=== PATIENT | male | born 1980 | race Caucasian/White ===

== ENCOUNTER 2021-04-17 12:42 | Day surgery (SDC) | payer BC, SELFPAY ==
[2021-04-16 17:23] LABS: Hematocrit 42.9 % (40-54); Hemoglobin 14.3 g/dL (13.0-16.5); Mean Corp Hgb Conc 33.3 g/dL (32-36); Mean Corpuscular Hgb 29.7 pg (27.0-32.0); Mean Platelet Vol. 12.1 fl (6.2-12.0); Platelet Count 237 K/mm3 (150-450); Red Blood Count 4.82 M/mm3 (4.6-6.2); White Blood Count 4.8 K/mm3 (4.4-11.0)
[2021-04-17 13:00] VITALS: BP 124/67; PULSE 50; RESP 16; TEMP 36.7; O2SAT 99; BMI 26.3
[2021-04-17] MEDS: Lactated Ringers 1,000 ML 100 ML IV ×2 (13:35→15:00)
--- NOTE | 2021-04-17 14:30 | CYST_PTH ---
PATIENT: GIOVANA JACOBS [place] [facility] [place][id number] AGE/SX: 40/M ROOM: RE04/17/[address]: Dr. Aki Veras DDS : 1980 BED: DIS: 04/17/2021 SPEC #: [id number] RECD: 04/17/21 15:34 STATUS: STU TYRELL #: [id number] POLO: 04/17/21 14:[address]: Aki Veras DEPT: SURGICAL PATHOLOGY RECD BY: Anel Nguyen ENTERED: 04/18/21 08:44 SP TYPE: Cyst OTHR DR: Dr. Andrea Micntosh MD Tissues: Mandible, NOS Procedures: Surgery Specimen Level IV HEADER OPERATION: Excision of benign tumor/cyst of mandible, removal of impact PRE-OP DIAGNOSIS: Odontogenic tumor/cyst right posterior mandible TISSUE SUBMITTED: Cyst of right posterior mandible MICROSCOPIC DIAGNOSIS Posterior mandible cyst, biopsy: Consistent with odontogenic cyst, inflamed and with associated reactive change. AM:juanito 04/22/2021 MICROSCOPIC DESCRIPTION Slides are reviewed. GROSS DESCRIPTION Received in fixative is one container labeled with the patient's name and designated cyst of right posterior mandible. The specimen consists of an irregular piece of duckworth-pink soft tissue consistent with portion of cyst measuring 1.5 x 1.5 x 0.5 cm. The cyst wall is thin without any papillation. The specimen is serially sectioned and submitted entirely in one cassette. / SJ:juanito 04/18/21 TC:5 CPT: 32045
[2021-04-17] MEDS: Bupivacaine Mpf 0.5% 30 ML VIAL (14:58)
[2021-04-17] MEDS: Lidocaine 2% /Epi 1:100 (50ml) 50 ML Vial (14:58)
[2021-04-17 15:43] VITALS: BP 124/67; BP 126/84; PULSE 62; RESP 16; TEMP 36.5; O2SAT 99
[2021-04-17 15:45] VITALS: BP 124/67; BP 127/86; PULSE 59; RESP 16; O2SAT 96
[2021-04-17 16:00] VITALS: BP 124/67; BP 129/95; PULSE 57; RESP 18; O2SAT 100
--- NOTE | 2021-04-17 16:06 | PCM.OPRPT ---
Problems Associated Problem List Diagnoses (1) Cyst of mandible: Report of Operation Date of Procedure: 04/17/21 Pre-Operative Diagnosis: Cyst right mandible Post-Operative Diagnosis: same Surgery/Procedure Performed:: Excision cyst of mandible and extraction tooth 32 Surgeon: Aki Veras Type of Anesthesia: General/Regional Anesthesiologist: Jayme Painting Special Medications: none Specimen's removed: cyst lining Drains: none Estimated Blood Loss (mL): minmal Fluids Replaced: 500 Description of Procedure: Patient taken to operating room and paced in supine position. Anesthesia monitors placed. IV general anesthesia and induced and patient intubated. Prepped in sterile fashion. Local anesthesia by right mandibular block. Full thickness incision right posterior mandible from the right ascending ramus carries anteriorly to the tooth bearing region of the mandible. Full flap elevated and using a high speed surgical handpiece bone was removed to enter the cystic region. The tooth was isolated and removed and the cystic lining was removed in total. The site was irrigated and sutured closed. Patient tolerated the anesthesia and procedure well. He was extubated and taken to recovery room in stable condition. Grafts/Implants Used: none Admit VTE Documentation VTE Pharm Prophylaxis ordered?: No
[2021-04-17 16:09] VITALS: BP 124/67; BP 130/94; PULSE 51; RESP 18; TEMP 36.1; O2SAT 100
--- NOTE | 2021-04-17 16:25 | PCM.DC ---
Discharge Instructions Diet Discharge Diet: Soft diet and - Activity Discharge Activity: May Not Drive, May Shower and May Take a Tub Bath Return to work on:: 04/22/21 Ice area for (Minutes): 20 Dressing / Incision Call your doctor if your incision/area has: Continuous Slow Oozing, Sudden Increased Bleeding, Increased Pain/ Swelling, Increased Redness and Foul Smelling Discharge Call your doctor if you observe: Fever of 101 or Higher Suture Line Care: Avoid Pulling/Pushing Follow Up Care Please Follow Up With: Dr. Veras When: 1 week. Please call for appointment Test Results: Test results from this visit will be discussed in further detail at your follow-up appointment, if applicable. Discharge Plan Admission Attending Provider: Aki Veras Primary Care Provider: Andrea Mcintosh Discharge Orders/Prescriptions Prescriptions: No Action vitamin B6-vitamin E-magnesium Tablet 1 tab PO DAILY RF: 0 Referrals / Follow Up: Andrea Mcintosh MD [Primary Care Provider] - Disposition Disposition (needs filled in before D/C Order can be placed): Home, self care
[2021-04-17 16:50] VITALS: BP 115/78; BP 124/67; PULSE 50; RESP 18; TEMP 36.2; O2SAT 100
== END 2021-04-17 17:05 | disposition home or self-care (01) ==
LOC: SDC 12:43 → AC 12:43
PROVIDERS: PCP Family Medicine; Referring Provider Dentist Oral and Maxillofacial Surgery; Visit Provider Dentist Oral and Maxillofacial Surgery
PROC: (CPT 41825; principal; 2021-04-17 14:20)
DX: K09.0 Developmental odontogenic cysts (principal); F17.290 Nicotine dependence, other tobacco product, uncomplicated; Z20.822 Contact with and (suspected) exposure to COVID-19
CPT/HCPCS: 41825; 41899; 36415; 85027; 87426; 88305; C9803; J7120; J2405

== ENCOUNTER → 2021-11-03 16:04 | Outpatient (CLI) | payer BC, SELFPAY ==
[2021-11-03 17:59] LABS: Absolute Lymphocyte Count 1.75 X10^3/uL (0.83-4.51); Absolute Neutrophil Count 2.7 X10^3/uL (2.0-7.7); Basophil# 0.05 X10^3/uL; Eosinophil# 0.15 X10^3/uL; Eosinophils% 2.9 % (0-5); Hematocrit 45.4 % (40-54); Hemoglobin 15.2 g/dL (13.0-16.5); Lymphocyte # 1.75 X10^3/ul (0.83-4.51); Lymphocyte % 33.7 % (19-41); Mean Corp Hgb Conc 33.5 g/dL (32-36); Mean Corpuscular Hgb 29.9 pg (27.0-32.0); Mean Corpuscular Volume 89.4 fL (80-94); Mean Platelet Vol. 12.2 fl (6.2-12.0); Monocyte# 0.54 X10^3/uL; Monocyte% 10.4 % (0-10); NRBC Flagged by Analyzer 0 % (0-5); Neutrophil # 2.69 X10^3/uL (2.7-7.7); Neutrophil % 51.6 % (47-70); Platelet Count 269 K/mm3 (150-450); RBC Distribution Width CV 11.9 % (11.6-14.6); RBC Distribution Width SD 39.1 fl (35.1-43.9); Red Blood Count 5.08 M/mm3 (4.6-6.2); White Blood Count 5.2 K/mm3 (4.4-11.0)
[2021-11-03 18:21] LABS: ALB/GLOB Ratio 1.5 RATIO (0.9-2.4); AST(SGOT) 18 U/L (15-37); Alanine Aminotransfer ALT/SGPT 33 U/L (16-61); Albumin, Serum 4.6 g/dL (3.2-5.0); Alkaline Phosphatase 71 U/L (45-117); Anion Gap 9 (5-15); BUN 8 mg/dL (7-18); BUN/Creat Ratio 8.2 RATIO (10-20); CPK Total, Creatine Kinase 122 U/L (39-308); CRP < 2.90 mg/L (0.0-3.0); Calcium,Total 9.1 mg/dL (8.5-10.1); Chloride 105 mmol/L (98-107); Creatinine, Serum 0.97 mg/dL (0.70-1.30); EST Glomerular Filtration Rate 91 mL/min (>60); Est Glom Filt Rate - Afr Amer 110 mL/min (>60); Globulin 3.1 g/dL (2.2-4.2); Glucose 84 mg/dL (74-106); Potassium 3.5 mmol/L (3.5-5.1); Protein, Total 7.7 g/dL (6.4-8.2); Rheumatoid Factor < 10.0 IU/mL (<15); Sodium Level 141 mmol/L (136-145); T4 Free Direct 1.09 ng/dL (0.76-1.46); Thyroid Stim Hormone (TSH) 1.75 uIU/mL (0.358-3.74)
[2021-11-03 18:23] LABS: Erythrocyte Sedimentation Rate 4 mm/hr (0-20)
[2021-11-06 07:27] LABS: CCP IgG Antibodies 5 units (0-19)
== END ==
PROVIDERS: PCP Family Medicine; Referring Provider Family Medicine; Visit Provider Family Medicine
DX: G72.9 Myopathy, unspecified (principal); M06.4 Inflammatory polyarthropathy; R53.83 Other fatigue
CPT/HCPCS: 36415; 80053; 82550; 84439; 84443; 85025; 85652; 86038; 86140; 86200; 86431

== ENCOUNTER → 2021-11-17 09:38 | Outpatient (CLI) | payer BC, SELFPAY ==
[2021-11-17 10:42] LABS: EXAGEN MAILED SPECIMEN
[2021-11-17 12:08] LABS: Absolute Lymphocyte Count 1.46 X10^3/uL (0.83-4.51); Absolute Neutrophil Count 2.9 X10^3/uL (2.0-7.7); Basophil# 0.05 X10^3/uL; Eosinophil# 0.18 X10^3/uL; Eosinophils% 3.6 % (0-5); Hematocrit 47.5 % (40-54); Hemoglobin 15.8 g/dL (13.0-16.5); Lymphocyte # 1.46 X10^3/ul (0.83-4.51); Lymphocyte % 29.1 % (19-41); Mean Corp Hgb Conc 33.3 g/dL (32-36); Mean Corpuscular Hgb 30.1 pg (27.0-32.0); Mean Corpuscular Volume 90.5 fL (80-94); Mean Platelet Vol. 11.6 fl (6.2-12.0); Monocyte# 0.41 X10^3/uL; Monocyte% 8.2 % (0-10); NRBC Flagged by Analyzer 0 % (0-5); Neutrophil # 2.91 X10^3/uL (2.7-7.7); Neutrophil % 57.9 % (47-70); Platelet Count 255 K/mm3 (150-450); RBC Distribution Width CV 12.2 % (11.6-14.6); Red Blood Count 5.25 M/mm3 (4.6-6.2)
[2021-11-17 12:15] LABS: Color, Urine Yellow (Yellow); Glucose, Dipstick Normal (Normal); Ketone-Dipstick Negative (Negative); Leukocyte Esterase-Dipstick Negative /ul (Negative); Nitrite-Dipstick Negative (Negative); Occult Blood-Urine Negative /ul (Negative); Protein-Dipstick Negative (Negative); Urine Bilirubin Dipstick Negative (Negative); Urine Clarity Clear (Clear); Urine Urobilinogen Normal (Normal)
[2021-11-17 12:26] LABS: Protein, Urine (Random) 11.7 mg/dL (<11.9); Protein:Creat Ratio 85 mg/g CRE (0-200)
[2021-11-17 12:37] LABS: ALB/GLOB Ratio 1.2 RATIO (0.9-2.4); AST(SGOT) 15 U/L (15-37); Alanine Aminotransfer ALT/SGPT 33 U/L (16-61); Albumin, Serum 4.2 g/dL (3.2-5.0); Alkaline Phosphatase 69 U/L (45-117); Anion Gap 7 (5-15); BUN 11 mg/dL (7-18); BUN/Creat Ratio 10.2 RATIO (10-20); Calcium,Total 9.2 mg/dL (8.5-10.1); Chloride 109 mmol/L (98-107); Creatinine, Serum 1.08 mg/dL (0.70-1.30); EST Glomerular Filtration Rate 81 mL/min (>60); Est Glom Filt Rate - Afr Amer 98 mL/min (>60); Globulin 3.5 g/dL (2.2-4.2); Glucose 90 mg/dL (74-106); Potassium 4.1 mmol/L (3.5-5.1); Protein, Total 7.7 g/dL (6.4-8.2); Sodium Level 141 mmol/L (136-145)
[2021-11-17 13:05] LABS: Hepatitis B Surface Antibody Non-Reactive; Hepatitis B Surface Antigen Non-Reactive (Nonreactive); Hepatitis C Antibody Non-Reactive (Nonreactive)
[2021-11-19 05:07] LABS: Dilute Prothrombin Time (dPT) 37.8 sec (0.0-47.6); Dilute Russell Viper Venom 33.3 sec (0.0-47.0); PTT-LA 31.3 sec (0.0-51.9); Thrombin Time 19.5 sec (0.0-23.0); dPT Confirm Ratio 1.07 Ratio (0.00-1.34)
[2021-11-19 08:52] LABS: Interpretation Comment: (.)
== END ==
PROVIDERS: PCP Family Medicine; Referring Provider Internal Medicine Rheumatology; Visit Provider Internal Medicine Rheumatology
DX: M06.4 Inflammatory polyarthropathy (principal); R76.8 Other specified abnormal immunological findings in serum
CPT/HCPCS: 36415; 80053; 81002; 82570; 84156; 85025; 86706; 86803; 87340

== ENCOUNTER 2022-01-28 15:21 | Outpatient (CLI) | payer BC, SELFPAY ==
[2022-01-28 17:47] LABS: Absolute Lymphocyte Count 1.74 X10^3/uL (0.83-4.51); Absolute Neutrophil Count 2.7 X10^3/uL (2.0-7.7); Basophil# 0.05 X10^3/uL; Hematocrit 43.1 % (40-54); Hemoglobin 14.9 g/dL (13.0-16.5); Lymphocyte # 1.74 X10^3/ul (0.83-4.51); Lymphocyte % 34.1 % (19-41); Mean Corp Hgb Conc 34.6 g/dL (32-36); Mean Corpuscular Hgb 30.9 pg (27.0-32.0); Mean Corpuscular Volume 89.4 fL (80-94); Mean Platelet Vol. 11.7 fl (6.2-12.0); Monocyte% 9.8 % (0-10); NRBC Flagged by Analyzer 0 % (0-5); Neutrophil # 2.71 X10^3/uL (2.7-7.7); Neutrophil % 52.9 % (47-70); Platelet Count 259 K/mm3 (150-450); RBC Distribution Width CV 12.1 % (11.6-14.6); RBC Distribution Width SD 39.6 fl (35.1-43.9); Red Blood Count 4.82 M/mm3 (4.6-6.2); White Blood Count 5.1 K/mm3 (4.4-11.0)
[2022-01-28 18:12] LABS: ALB/GLOB Ratio 1.4 RATIO (0.9-2.4); AST(SGOT) 13 U/L (15-37); Alanine Aminotransfer ALT/SGPT 27 U/L (16-61); Albumin, Serum 4.4 g/dL (3.2-5.0); Alkaline Phosphatase 62 U/L (45-117); Anion Gap 8 (5-15); BUN 14 mg/dL (7-18); BUN/Creat Ratio 15.2 RATIO (10-20); Chloride 103 mmol/L (98-107); Creatinine, Serum 0.92 mg/dL (0.70-1.30); EST Glomerular Filtration Rate 97 mL/min (>60); Est Glom Filt Rate - Afr Amer 117 mL/min (>60); Globulin 3.2 g/dL (2.2-4.2); Glucose 84 mg/dL (74-106); Potassium 3.6 mmol/L (3.5-5.1); Protein, Total 7.6 g/dL (6.4-8.2); Sodium Level 138 mmol/L (136-145)
== END 2022-01-28 23:59 | disposition home or self-care (01) ==
PROVIDERS: PCP Family Medicine; Referring Provider Internal Medicine Rheumatology; Visit Provider Internal Medicine Rheumatology
DX: M06.4 Inflammatory polyarthropathy (principal); R76.8 Other specified abnormal immunological findings in serum; Z79.899 Other long term (current) drug therapy
CPT/HCPCS: 36415; 80053; 85025

== ENCOUNTER → 2024-05-19 | Outpatient (CLI) | payer BC, SELFPAY ==
[2024-05-19 15:16] LABS: Absolute Lymphocyte Count 1.37 X10^3/uL (0.83-4.51); Absolute Neutrophil Count 2.5 X10^3/uL (2.0-7.7); Basophil# 0.06 X10^3/uL; Basophil% 1.3 % (0-1); Eosinophil# 0.11 X10^3/uL; Eosinophils% 2.4 % (0-5); Hematocrit 46.3 % (40-54); Hemoglobin 15.4 g/dL (13.0-16.5); Lymphocyte # 1.37 X10^3/ul (0.83-4.51); Lymphocyte % 30.4 % (19-41); Mean Corp Hgb Conc 33.3 g/dL (32-36); Mean Corpuscular Hgb 30.3 pg (27.0-32.0); Mean Platelet Vol. 12.1 fl (6.2-12.0); Monocyte# 0.47 X10^3/uL; Monocyte% 10.4 % (0-10); NRBC Flagged by Analyzer 0 % (0-5); Neutrophil # 2.48 X10^3/uL (2.7-7.7); Neutrophil % 55.3 % (47-70); Platelet Count 222 K/mm3 (150-450); RBC Distribution Width CV 11.9 % (11.6-14.6); RBC Distribution Width SD 39.9 fl (35.1-43.9); Red Blood Count 5.09 M/mm3 (4.6-6.2); White Blood Count 4.5 K/mm3 (4.4-11.0)
[2024-05-19 15:39] LABS: Erythrocyte Sedimentation Rate 1 mm/hr (0-20)
[2024-05-19 15:48] LABS: ALB/GLOB Ratio 1.2 RATIO (0.9-2.4); AST(SGOT) 15 U/L (15-37); Alanine Aminotransfer ALT/SGPT 36 U/L (16-61); Albumin, Serum 4.1 g/dL (3.2-5.0); Alkaline Phosphatase 76 U/L (45-117); Anion Gap 6 (5-15); BUN 11 mg/dL (7-18); BUN/Creat Ratio 10.8 RATIO (10-20); CRP < 2.90 mg/L (0.0-3.0); Calcium,Total 8.9 mg/dL (8.5-10.1); Chloride 107 mmol/L (98-107); Cholesterol 200 mg/dL (200); Creatinine, Serum 1.02 mg/dL (0.70-1.30); EST Glomerular Filtration Rate 85 mL/min (>60); Est Glom Filt Rate - Afr Amer 103 mL/min (>60); Globulin 3.4 g/dL (2.2-4.2); Glucose 89 mg/dL (74-106); High Density Lipoprotein 86 mg/dL; Potassium 4.1 mmol/L (3.5-5.1); Protein, Total 7.5 g/dL (6.4-8.2); Sodium Level 139 mmol/L (136-145); Triglycerides 64 mg/dL; Very Low Density Lipoprotein 13 mg/dL (5-40)
[2024-05-22 13:07] LABS: ANTINUCLEAR ANTIBODIES DIRECT Negative (Negative)
== END | disposition home or self-care (01) ==
LOC: BFHLAB 10:50
PROVIDERS: PCP Nurse Practitioner Family; Referring Provider Nurse Practitioner Family; Visit Provider Nurse Practitioner Family
DX: Z00.01 Encounter for general adult medical examination with abnormal findings (principal); Z12.5 Encounter for screening for malignant neoplasm of prostate; R76.8 Other specified abnormal immunological findings in serum; R79.89 Other specified abnormal findings of blood chemistry; M25.50 Pain in unspecified joint
CPT/HCPCS: 36415; 80053; 80061; 84153; 84403; 85025; 85652; 86038; 86140; G0103

== ENCOUNTER 2024-07-05 07:38 | Day surgery (SDC) | payer BC, SELFPAY ==
[2024-07-05] VITALS (7 sets, daily range): BP systolic 86–125; BP diastolic 55–75; PULSE 47–66; RESP 16; TEMP 36.1–36.6; O2SAT 97–100; BMI 27.1
[2024-07-05] MEDS: Lactated Ringers 1,000 ML 15 ML IV (08:03)
--- NOTE | 2024-07-05 08:07 | HP.PCM_ITS ---
HPI - General General Date of Service: 07/05/24 [facility] Narrative GIOVANA JACOBS, is a 43 M who presents for an EGD and colonoscopy due to epigastric pain and bloating and bright red blood per rectum. Patient denies any further bleeding since office visit. Patient did have a prescription called in for omeprazole however patient never picked it up. Still complains of abdominal bloating states the pain is not that bad. office visit 06/01/24 [facility] HPI: 43-year-old male presents for EGD and colonoscopy due to epigastric discomfort and bright red blood per rectum. Patient states he has had occasional bleeding per rectum for last few years states maybe once every 2 to 3 months. But patient states about a month and a half ago he had 3 days of straight bright red blood patient denies any issues with hemorrhoids at that time. Patient denies any further bleeding since the 3-day episode. Patient has bowel movements daily. Patient denies any family history of colon cancer. Patient does state that he does get epigastric pain after eating that happens almost immediately after he finished eating can last for couple of hours. Patient states this has been ongoing for about the last 8 months. Patient denies any nausea or vomiting. The patient does not really feel like eating and can go 24 hours without him feeling hungry. Patient denies trying any antiacid's or other medications for this. [facility] Medical History Wears contact lenses Wears glasses Alcohol use Smoker Allergy/AdvReac Type Severity Reaction Status Date / Time No Known Allergies Allergy Verified 07/05/24 07:55 Surgical History (Updated 07/03/24 @ 09:54 by Elke Combs) History of wisdom tooth extraction Social History (Updated 06/01/24 @ 13:19 by Patti Francisco) Smoking Status: Current every day smoker tobacco type: e-cigarettes alcohol intake: current substance use type: does not use Past Medical/Surgical History Planned Operation Planned Operative Procedure(s): EGD, COLONOSCOPY Previous Hospitalizations/Surgeries HX Hospitalizations: No Any Problems With Anesthesia: No You/Your Family Experience Fever (Hyperthermia) With Anes: No Cholinesterase deficiency: No Cardiovascular Hx Hypertension: No Respiratory Hx Asthma: No Hx Emphysema: No Hx Sleep Apnea: No Hx Respiratory Tract Infection/Cold (presently): No Do You Snore Loudly (louder than talking or can be heard): No Do You Often Feel Tired/ Fatigued/ Sleepy Dring Daytime?: No Has Anyone Observed You Stop Breathing During Sleep?: No Result (for STOP score): Negative Smoking Status: Current every day smoker Neurological Hx Seizures: No Does patient have nerve stimulator: No Reproduction : No Miscellaneous Recent Exposure to Contagious Disease: No Allergies No Known Allergies Allergy (Verified 07/05/24 07:55) Discharge Is Pt Admitted From a Penitentiary, or a Nursing Home: No Who Could Help: After D/C, Where Do you Plan to Go: Return Home Vital Signs Vital Signs Vital Signs: 07/05/24 08:00 07/05/24 08:00 Temperature 97.8 F Temperature Source Temporal Pulse Rate 63 Respiratory Rate 16 Respiratory Pattern Normal Blood Pressure 125/71 H Blood Pressure Mean 89 Blood Pressure Source Monitor Blood Pressure Position Sitting Blood Pressure Location Right Arm Pulse Ox 99 Oxygen Delivery Method Room Air Weight Weight: 211 lb 10.3 oz Body Mass Index (BMI) 27.1 Physical Exam Const alert, oriented x3 and no apparent distress HEENT normocephalic and head/scalp atraumatic Resp normal respiratory effort Cardio regular rate GI soft to palpation and non-tender; Negative for non-distended Palpation: Negative for guarding Extremity no clubbing, cyanosis or edema Skin no rashes or lesions noted Neuro CN's II-XII intact bilaterally Psych mental status grossly normal Assessment & Plan Assessment/Plan (1) Epigastric abdominal pain: (2) Blood in stool: Surgery Risks - Colonoscopy I discussed with the patient the risks of the procedure: Yes Risks Include but are not Limited To: Plan for EGD and colonoscopy risks include but are not limited to: Bleeding, perforation requiring further surgery, inability to complete colonoscopy requiring barium enema.
--- NOTE | 2024-07-05 08:21 | PRE.ANES_ITS ---
ASA Classification* ASA Classification ASA Classification: 2 Assessment & Plan Anesthesia* Anesthesia Assessment Anesthesia Assessment: Discussed sedation and/or anesthesia options, risks, benefits, and alternatives with patient/parents/legal guardian/POA. Questions invited. The patient/parents/legal guardian/POA seems to understand and agrees to proceed with anesthesia plan. Reviewed the physical assessment, medical history, allergy history and patient home medications list prior to surgery/procedure/anesthetic and documented any changes. Performed airway and anesthesia risk assessments. Anesthesia Type Anesthesia Type: MAC Anesthesia Focused Assessment* Temperature: 97.8 F Pulse Rate: 63 Blood Pressure: 125/71 Respiratory Rate: 16 Pulse Ox: 99 Airway Assessment Mouth opens: >3 cm Mallampati Score: II Focused Labs Anesthesia Preop lab: CBC WBC 4.5 K/mm3 (4.4-11.0) 05/19/24 10:50 RBC 5.09 M/mm3 (4.6-6.2) 05/19/24 10:50 Hgb 15.4 g/dL (13.0-16.5) 05/19/24 10:50 Hct 46.3 % (40-54) 05/19/24 10:50 Plt Count 222 K/mm3 (150-450) 05/19/24 10:50 CHEMISTRY Potassium 4.1 mmol/L (3.5-5.1) 05/19/24 10:50 Sodium 139 mmol/L (136-145) 05/19/24 10:50 BUN 11 mg/dL (7-18) 05/19/24 10:50 Creatinine 1.02 mg/dL (0.70-1.30) 05/19/24 10:50 Glucose 89 mg/dL (74-106) 05/19/24 10:50 TSH 1.75 uIU/mL (0.358-3.74) 11/03/21 16:15 COAG Pre-Assessment Diagnosis/Proposed Procedure Planned Operative Procedure(s): EGD, COLONOSCOPY Anesthesia History Anesthesia History - fitness assistant: Anesthesia History - fitness assistant Hx Hospitalization No 07/05/24 08:09 Any Problems With Anesthesia No 07/05/24 08:09 Cholinesterase deficiency No 07/05/24 08:09 You/Your Family Experience No 07/05/24 08:09 fever (hyperthermia) with Relationship Recent Exposure to Contagious No 07/05/24 08:09 Disease Does patient have nerve No 07/05/24 08:09 stimulator Patient instructed to have device shut off --Does patient have Pacemaker No 07/05/24 08:00 or ICD? When Was Last Pacemaker Check QUESTION #4 FULL TEXT: You/Your Family Experience fever (hyperthermia) with Anesthesia Last Oral Intake Last Oral intake: Last Oral Intake NPO since 19:30 07/05/24 08:00 Meds taken in AM with sips of No 07/05/24 08:00 water? Meds patient instructed to take am of surgery PONV PONV - fitness assistant: PONV - fitness assistant Female No 07/03/24 09:54 HX of Motion Sickness No 07/03/24 09:54 HX of N/V After Surgery No 07/03/24 09:54 Non-Smoker No 07/03/24 09:54 Duration of Surgery greater No 07/03/24 09:54 than 60 minutes Number of Risk Factors PONV Score Height & Weight Height & Weight: Anesthesia: Height & Weight Height 6 ft 2 in 07/05/24 08:00 Weight: 96 kg 07/05/24 08:00 Body Mass Index (BMI) 27.1 07/05/24 08:00 Respiratory Assessment Respiratory Assessment - fitness assistant: Respiratory Tract Infection Hx - fitness assistant Hx Respiratory Tract Infection No 07/05/24 08:09 STOP Sleep Apnea STOP Sleep Apnea - fitness assistant: STOP Sleep Apnea - fitness assistant Hx Hypertension No 07/05/24 08:09 Hx Sleep Apnea No 07/05/24 08:09 CPAP BIPAP Do you snore loudly (louder No 07/05/24 08:09 than talking or can be heard Do you often feel tired/ No 07/05/24 08:09 fatigued/ sleepy during daytime? Has anyone observed you stop No 07/05/24 08:09 breathing during sleep? STOP Results Negative 07/05/24 08:16 QUESTION #5 FULL TEXT : Do you snore loudly (louder than talking or can be heard through closed doors)? Tobacco Use History Tobacco Use History - fitness assistant: Tobacco Use History - fitness assistant Tobacco Use Cigarettes,Vapor 04/10/21 10:56 Smoking Status Current every day smoker 07/05/24 08:09 Hx Tobacco Use Yes 07/03/24 09:54 Years Smoking Packs Smoked per Day Smoking Cessation Date was within the last 15 years Hx Smoking Cessation Date Hx Smoking Cessation Counseling Hematologic Medial History Hematologic Hx - fitness assistant: Hematologic Medical Hx - piece maker Hx of Blood Transfusion No 07/03/24 09:54 Hx of Transfusion in last 3 No 07/03/24 09:54 Months Date of Last Transfusion (if within last 3 months) Ever experience any problems No 07/03/24 09:54 with transfusion(s)? Specify any problems Hx of Preganancy in last 3 N/A 07/03/24 09:54 Months Nurse Filling Out Transfusion VLEHMAN 07/03/24 09:54 & Questions: Date: 07/03/24 07/03/24 09:54 Time: 10:01 07/03/24 09:54 Patient unable to answer at this time (ie. confused, unrespo /Reproduction History /Reproductive History - fitness assistant: /Reproductive Hx- fitness assistant Hx Now No 07/05/24 08:09 Gestational Age (in weeks): EDC: Hx Hx Para Hx Section SAB Active Medications Active Medications: Current Medications Generic Name Dose Route Start Last Admin Trade Name Freq PRN Reason Stop Dose Admin Lactated Ringer's 1,000 mls @ 15 mls/hr 07/05/24 08:00 07/05/24 08:03 IV 15 mls/hr .Q48H AMY Administration PFSH Medical History Wears contact lenses Wears glasses Alcohol use Smoker Allergy/AdvReac Type Severity Reaction Status Date / Time No Known Allergies Allergy Verified 07/05/24 07:55 Surgical History History of wisdom tooth extraction Social History Smoking Status: Current every day smoker tobacco type: e-cigarettes alcohol intake: current substance use type: does not use Review of Systems (Anesthesia) ROS Narrative System reviewed and no additional complaints, except as documented.
--- NOTE | 2024-07-05 09:00 | EGD_PTH ---
PATIENT: GIOVANA JACOBS LOC: [place] U#:[id number] AGE/SX: 43/M ROOM: RE07/05/[address]: Dr. Yuli Mtoley MD : 1980 BED: DIS: 07/05/2024 SPEC #: [id number] RECD: 07/05/24 13:18 STATUS: STU TYRELL #: [id number] POLO: 07/05/24 09:[address]: Yuli Motley DEPT: SURGICAL PATHOLOGY RECD BY: Berenice Vela ENTERED: 07/06/24 09:07 SP TYPE: EGD BIOPSY OT DR: Aby Lopez, HOISTING ENGINEER-C Tissues: A - Gastric mucous membrane B - Esophagus, NOS C - Ascending colon D - Transverse colon E - Descending colon F - Descending colon G - Rectum, NOS Procedures: Surgery Specimen Level IV HEADER OPERATION: Colonoscopy, EGD, biopsy, polypectomy PRE-OP DIAGNOSIS: Epigastric abdominal pain, blood in stool TISSUE SUBMITTED: A- Antrum biopsy, B- Gastroesophageal junction biopsy, C- Ascending colon polyp, D- Transverse colon polyp, E- Descending colon polyp mid and base, F- Descending colon distal polyp, G- Rectal polyp MICROSCOPIC DIAGNOSIS A. Gastric antrum , biopsy: Chronic gastritis. See comment. B. Gastroesophageal junction, biopsy: Mild chronic inflammation. Focal changes of reflux. No evidence of goblet cell metaplasia. See comment. C. Ascending colon polyp, biopsy: Fragments of tubular adenoma. D. Transverse colon polyp, biopsy: Fragments of tubular adenoma. E. Descending colon polyp, biopsy: Fragments of tubulovillous adenoma. F. Descending colon distal polyp, biopsy: Fragments of tubulovillous adenoma. G. Rectal polyp, biopsy: Fragments of tubulovillous adenoma. AM/ 07/07/2024 COMMENT A. The results of immunohistochemistry for Helicobacter pylori will be reported separately ([id number]). B. Alcian blue/PAS stain with matched control is used in the evaluation of the specimen. MICROSCOPIC DESCRIPTION Slides are reviewed. GROSS DESCRIPTION A. Received in fixative is one container labeled with the patient's name and designated Antrum biopsy. The specimen consists of one irregular fragment of light duckworth soft tissue that measures 0.3 x 0.3 x 0.1 cm. The specimen is totally submitted in one cassette. B. Received in fixative is one container labeled with the patient's name and designated GE junction biopsy. The specimen consists of two irregular fragments of light duckworth soft tissue that measures 0.4 x 0.2 x 0.1 cm. The specimen is totally submitted in one cassette. C. Received in fixative is one container labeled with the patient's name and designated Ascending colon polyp. The specimen consists of multiple irregular fragments of light duckworth soft tissue that in aggregate measure 1.0 x 0.5 x 0.1 cm. The specimen is totally submitted in one cassette. D. Received in fixative is one container labeled with the patient's name and designated Transverse colon polyp. The specimen consists of multiple irregular fragments of light duckworth soft tissue that in aggregate measure 0.6 x 0.3 x 0.1 cm. The specimen is totally submitted in one cassette. E. Received in fixative is one container labeled with the patient's name and designated Descending colon polyp- mid and base. The specimen consists of multiple irregular fragments of light duckworth soft tissue that in aggregate measure 2.5 x 1.5 x 0.2 cm. The specimen is totally submitted in one cassette. F. Received in fixative is one container labeled with the patient's name and designated Descending colon - distal polyp. The specimen consists of two fragments each measuring 1.5 x 1.5 x 1.2cm and 2.5 x 1.5 x 1.2cm. The presumed base is inked. Both polyps are serially sectioned . The entire specimen is submitted in four cassettes as follows: 1-3- larger polyp, 4- smaller polyp. G. Received in fixative is one container labeled with the patient's name and designated Rectal polyp. The specimen consists of a duckworth-pink polyp measuring 1.0 x 1.0 x 0.6 cm. Also present in the container are multiple fragments of duckworth-pink soft tissue measuring in aggregate 2.0 x 0.5 x 0.1cm. The presumed base is inked. The polyp is serially sectioned and submitted entirely in one cassette. ARANZA/ 07/06/2024 TC:1 CPT:42072g9,93993 ADDENDUM ADDENDUM ADDENDUM 07/10/2024 16:24 ADDENDUM 07/10/2024 16:24 ADDENDUM 07/10/2024 16:24 ADDENDUM 07/10/2024 16:24 ADDENDUM 07/10/2024 16:24 B. Eosinophils number greater than 15% per high power field. Clinical correlation is necessary.
--- NOTE | 2024-07-05 09:00 | IMM_PTH ---
PATIENT: GIOVANA JACOBS LOC: [place] U#:[id number] AGE/SX: 43/M ROOM: RE07/05/[address]: Dr. Yuli Motley MD : 1980 BED: DIS: 07/05/2024 SPEC #: [id number] RECD: 07/06/24 08:10 STATUS: STU REMarie #: [id number] POLO: 07/05/24 09:[address]: Yuli Motley DEPT: IMMUNOHISTOCHEMISTRY RECD BY: Seamus Boston ENTERED: 07/06/24 08:12 SP TYPE: IMMUNO OTHR DR: Aby Lopez, SLEEVE WHEEL MAKER-Iram Tissues: A - Gastric mucous membrane Procedures: H Pylori (initial) PHYSICIAN & INSTITUTION [place] [id number] SPECIMEN INFORMATION: Tissue Source: A- Antrum Clinical Info: Epigastric abdominal pain, blood in stool Specimen Number: [id number] CPT code: 05680 METHODOLOGY: Deparaffinized sections of prefer/formalin-fixed tissue or PAP/DQ stained slides are incubated with monoclonal/polyclonal antibodies/oligonucleotide probes. Localization is made via biotin free immunoperoxidase method. Appropriate controls are performed and reacted as expected. Results on target cell population are indicated in the following table: RESULTS: ANTIBODY / CLONE RESULT Block A H Pylori (polyclonal) negative These tests were developed and their performance characteristics determined by [facility]. They may not have been cleared or approved by the U.S. Food and Drug Administration. The FDA has determined that such clearance or approval is not necessary. The above immunohistochemical/dualISH markers are ordered and reviewed by the Pathologist. INTERPRETATION: A. Gastric antrum, biopsy: Negative for Helicobacter pylori organisms. DELPHINE/ 07/07/2024
--- NOTE | 2024-07-05 10:14 | OP.EGD_ITS ---
Patient Name: Narciso Mendosa Procedure Date: 07/05/2024 9:24 AM Date of : 1980 Age: 43 Procedure: Upper GI endoscopy Indications: Epigastric abdominal pain, Heartburn Providers: Yuli Motley MD Medicines: Monitored Anesthesia Care Patient Profile: This is a 43 year old male. Complications: No immediate complications. Procedure: Pre-Anesthesia Assessment: - Prior to the procedure, a History and Physical was performed, and patient medications and allergies were reviewed. The patient's tolerance of previous anesthesia was also reviewed. The risks and benefits of the procedure and the sedation options and risks were discussed with the patient. All questions were answered, and informed consent was obtained. Prior Anticoagulants: The patient has taken no anticoagulant or antiplatelet agents. ASA Grade Assessment: Per anesthesia. After reviewing the risks and benefits, the patient was deemed in satisfactory condition to undergo the procedure. After obtaining informed consent, the endoscope was passed under direct vision. Throughout the procedure, the patient's blood pressure, pulse, and oxygen saturations were monitored continuously. The Colonoscope was introduced through the mouth, and advanced to the second part of duodenum. The upper GI endoscopy was accomplished without difficulty. The patient tolerated the procedure well. Scope In: 9:32:09 AM Scope Out: 9:35:37 AM Total Procedure Duration Time 0 hours 3 minutes 28 seconds Findings: The Z-line was irregular and was found 40 cm from the incisors. Biopsies were taken with a cold forceps for histology. Striped moderately erythematous mucosa without bleeding was found in the gastric antrum. Biopsies were taken with a cold forceps for histology. Biopsies were taken with a cold forceps for Helicobacter pylori cultures. The examined duodenum was normal. The cardia and gastric fundus were normal on retroflexion. Impression: - Z-line irregular, 40 cm from the incisors. Biopsied. - Erythematous mucosa in the antrum. Biopsied. - Normal examined duodenum. Recommendation: - Await pathology results. - Discharge patient to home. - Resume previous diet. - Use Prilosec (omeprazole) 40 mg PO daily. - Continue present medications. Procedure Code(s): --- Professional --- 59243, Esophagogastroduodenoscopy, flexible, transoral; with biopsy, single or multiple Diagnosis Code(s): --- Professional --- K22.89, Other specified disease of esophagus K31.89, Other diseases of stomach and duodenum R10.13, Epigastric pain R12, Heartburn CPT copyright 2021 [employer] [place] [employer]. All rights reserved. The codes documented in this report are preliminary and upon sheet sorter review may be revised to meet current compliance requirements. MD Yuli Valdivia MD 07/05/2024 10:14:31 AM This report has been signed electronically. Number of Addenda: 0 Note Initiated On: 07/05/2024 9:24 AM
--- NOTE | 2024-07-05 10:15 | OP.CCLET_ITS ---
07/05/2024 Jeet Freire Re : Upper GI endoscopy procedure for Narciso Balderasr John This procedure was performed on Friday, July 05, 2024. My impressions and recommendations are as follows: Impressions : - Z-line irregular, 40 cm from the incisors. Biopsied. - Erythematous mucosa in the antrum. Biopsied. - Normal examined duodenum. Recommendations : - Await pathology results. - Discharge patient to home. - Resume previous diet. - Use Prilosec (omeprazole) 40 mg PO daily. - Continue present medications. My findings are described in the full procedure note, which is enclosed. If I can be of further assistance, please feel free to contact me at Doctor phone number(s): , Work: . Sincerely, MD Yuli Valdivia MD 07/05/2024 10:14:31 AM This report has been signed electronically.
--- NOTE | 2024-07-05 10:19 | PCM.POST.ANE ---
Anesthesia: Postop Eval I Current Vital Signs Temperature: 97 F Pulse Rate: 64 Blood Pressure: 86/55 Respiratory Rate: 16 Pulse Ox: 97 Oxygen Delivery Method: Room Air Assessment Airway patent: Yes Spontaneous unlabored respirations: Yes Mental status: Awake and Calm nausea: No Vomiting: No Anesthesia Complication: No Fluid Hydration Crystalloid volume administer (ml): 900 Total IV fluid infused: 900 Progress Note Anesthesia document: Postop Eval 1 completed: Yes
--- NOTE | 2024-07-05 10:22 | OP.COLON_ITS ---
Patient Name: Narciso Mendosa Procedure Date: 07/05/2024 9:35 AM Date of : 1980 Age: 43 Procedure: Colonoscopy Indications: Rectal bleeding Providers: Yuli Motley MD Medicines: Monitored Anesthesia Care Patient Profile: This is a 43 year old male. Last Colonoscopy: none. The patient's first colonoscopy is today. Complications: No immediate complications. Procedure: Pre-Anesthesia Assessment: - Prior to the procedure, a History and Physical was performed, and patient medications and allergies were reviewed. The patient's tolerance of previous anesthesia was also reviewed. The risks and benefits of the procedure and the sedation options and risks were discussed with the patient. All questions were answered, and informed consent was obtained. Prior Anticoagulants: The patient has taken no anticoagulant or antiplatelet agents. ASA Grade Assessment: Per anesthesia. After reviewing the risks and benefits, the patient was deemed in satisfactory condition to undergo the procedure. After I obtained informed consent, the scope was passed under direct vision. Throughout the procedure, the patient's blood pressure, pulse, and oxygen saturations were monitored continuously. The Colonoscope was introduced through the anus and advanced to the cecum, identified by appendiceal orifice and ileocecal valve. The colonoscopy was performed without difficulty. The patient tolerated the procedure well. The quality of the bowel preparation was good. Scope In: 9:36:36 AM Scope Withdrawal Time 0 hours 26 minutes 49 seconds Scope Out: 10:08:35 AM Total Procedure Duration Time 0 hours 31 minutes 59 seconds Findings: The perianal and digital rectal examinations were normal. A 37 mm polyp was found in the descending colon at 80 cm. The polyp was pedunculated. The polyp was removed with a piecemeal technique using a hot snare. Resection and retrieval were complete. Area was successfully injected with [Volume] Kathy ink for tattooing. A 10 mm polyp was found in the rectum. The polyp was pedunculated. The polyp was removed with a hot snare. Resection and retrieval were complete. A less than 5 mm polyp was found in the ascending colon. The polyp was semi-pedunculated. The polyp was removed with a hot snare. Resection and retrieval were complete. Impression: - One 36 mm polyp in the descending colon, removed piecemeal using a hot snare. Resected and retrieved. Injected. - One 10 mm polyp in the rectum, removed with a hot snare. Resected and retrieved. - One less than 5 mm polyp in the ascending colon, removed with a hot snare. Resected and retrieved. Recommendation: - Await pathology results. - Repeat colonoscopy 6 month- 1 year for surveillance based on pathology results. - Continue present medications. Procedure Code(s): --- Professional --- 58332, Colonoscopy, flexible; with removal of tumor(s), polyp(s), or other lesion(s) by snare technique 76304, Colonoscopy, flexible; with directed submucosal injection(s), any substance Diagnosis Code(s): --- Professional --- D12.4, Benign neoplasm of descending colon D12.8, Benign neoplasm of rectum D12.2, Benign neoplasm of ascending colon K62.5, Hemorrhage of anus and rectum CPT copyright 2021 [employer]. All rights reserved. The codes documented in this report are preliminary and upon capital project engineer review may be revised to meet current compliance requirements. MD Yuli Valdivia MD 07/05/2024 10:21:55 AM This report has been signed electronically. Number of Addenda: 0 Note Initiated On: 07/05/2024 9:35 AM
--- NOTE | 2024-07-05 10:23 | OP.CCLET_ITS ---
07/05/2024 Jeet Freire Re : Colonoscopy procedure for Narciso Mendosa Dear John This procedure was performed on Friday, July 05, 2024. My impressions and recommendations are as follows: Impressions : - One 36 mm polyp in the descending colon, removed piecemeal using a hot snare. Resected and retrieved. Injected. - One 10 mm polyp in the rectum, removed with a hot snare. Resected and retrieved. - One less than 5 mm polyp in the ascending colon, removed with a hot snare. Resected and retrieved. Recommendations : - Await pathology results. - Repeat colonoscopy 6 month- 1 year for surveillance based on pathology results. - Continue present medications. My findings are described in the full procedure note, which is enclosed. If I can be of further assistance, please feel free to contact me at Doctor phone number(s): , Work: . Sincerely, MD Yuli Valdivia MD 07/05/2024 10:21:55 AM This report has been signed electronically.
--- NOTE | 2024-07-05 16:27 | PCM.POSTANE2 ---
Anesthesia Postop Eval I Sum Postop Eval Completion status Anesthesia document: Postop Eval 1 completed: Yes Anesthesia Postop Eval I Summary Anesthesia Postop Eval I Summary: Anesthesia Postop Eval I: Assessment Summary Airway patent Yes 07/05/24 10:20 [email or web address] Spontaneous unlabored Yes 07/05/24 10:20 [email or web address] respirations Mental status Awake,Calm 07/05/24 10:20 [email or web address] nausea No 07/05/24 10:20 [email or web address] Vomiting No 07/05/24 10:20 [email or web address] Anesthesia Postop Eval I: Fluid Summary Crystalloid volume administer 900 07/05/24 10:20 [email or web address] (ml) Colloids volume administered ( ml) Blood Product volume administered (ml) Total IV fluid infused 900 07/05/24 10:20 [email or web address] Anesthesia Postop Eval I: Summary Notes Anesthesia Complication No 07/05/24 10:20 [email or web address] Anesthesia Complication Comment: Post-operative progress note Anesthesia: Postop Eval II Evaluation Mental status: Awake and Calm Pain Level: 0 nausea: No Vomiting: No Complications Anesthesia Complication: No
== END 2024-07-05 10:50 | disposition home or self-care (01) ==
LOC: EN 07:42 → AC 07:43
PROVIDERS: PCP Nurse Practitioner Family; Referring Provider Nurse Practitioner Family; Visit Provider Surgery
PROC: 0DJD8ZZ Inspection of Lower Intestinal Tract, Via Natural or Artificial Opening Endoscopic (ICD-10-PCS; CPT 45378; principal; 2024-07-05 08:55)
DX: K62.5 Hemorrhage of anus and rectum (principal); D12.2 Benign neoplasm of ascending colon; D12.4 Benign neoplasm of descending colon; D12.8 Benign neoplasm of rectum; R14.0 Abdominal distension (gaseous); K20.90 Esophagitis, unspecified without bleeding; R10.13 Epigastric pain; F17.290 Nicotine dependence, other tobacco product, uncomplicated
CPT/HCPCS: 45381; 45385; 43239; 88305; 88342; J7120; A4648; J2405

== ENCOUNTER → 2025-07-26 | Outpatient (CLI) | payer BC, SELFPAY ==
--- NOTE | 2025-07-26 09:35 | RAD_ITS ---
PROCEDURE: CERV SPINE 4 OR 5 VIEWS 07/26/2025 REASON FOR EXAM: BRACHIAL PLEXUS DISORDERS TECHNIQUE: Procedure Code: [facility] Modality: DX Procedure: CERV SPINE 4 OR 5 VIEWS COMPARISON: None. FINDINGS: There is loss of the normal cervical lordosis. There are no compression fractures or subluxations. There is degenerative disc disease, C3-4 and C4-5 with narrowing of the intervertebral disc spaces. There is degenerative grade 1 retrolisthesis of C4 on C5. There is no instability with flexion and extension. The paravertebral soft tissues are normal. RAD/Cerv Spine 4 or 5 Views IMPRESSION: 1. Cervical spasm. 2. Degenerative disc disease C3-4 and C4-5. 3. Spondylolisthesis, C4 on C5. Reading [id number]
[2025-07-26 10:36] LABS: Hematocrit 46.7 % (40-54); Hemoglobin 16.1 g/dL (13.0-16.5); Immature Granulocytes Count 0.010 X10^3/uL (0.0-0.0); Mean Corp Hgb Conc 34.5 g/dL (32-36); Mean Corpuscular Volume 90.3 fL (80-94); Mean Platelet Vol. 11.7 fl (6.2-12.0); NRBC Flagged by Analyzer 0 % (0-5); Platelet Count 234 K/mm3 (150-450); RBC Distribution Width CV 11.3 % (11.6-14.6); RBC Distribution Width SD 37.3 fl (35.1-43.9); Red Blood Count 5.17 M/mm3 (4.6-6.2); White Blood Count 4.0 K/mm3 (4.4-11.0)
[2025-07-26 11:50] LABS: AST(SGOT) 25 U/L (<=37); Alanine Aminotransfer ALT/SGPT 34 U/L (<=46); Albumin, Serum 4.7 g/dL (3.5-5.0); Alkaline Phosphatase 74 U/L (40-129); Anion Gap 14 (5-15); BUN 11 mg/dL (4-19); BUN/Creat Ratio 9.6 RATIO (10-20); Calcium,Total 9.3 mg/dL (7.6-11.0); Carbon Dioxide 22.2 mmol/L (21.0-32.0); Chloride 103 mmol/L (98-108); Cholesterol 221 mg/dL (<=200); Globulin 2.6 g/dL (2.2-4.2); Glucose 89 mg/dL (70-99); Low Density Lipoprotein Calc. 136 mg/dL; Potassium 4.2 mmol/L (3.3-5.1); Triglycerides 101 mg/dL; Very Low Density Lipoprotein 20 mg/dL (5-40); cholesterol:hdl ratio screen 3.39
[2025-07-26 12:40] LABS: CORTISOL AM 19.40 ug/dL (6.02-18.40); CRP < 3.00 mg/L (0.0-3.0); Ferritin 259 ng/mL (37-417); Iron 76 ug/dL (65-175); PSA,Total - Annual Screen 0.44 ng/mL (0.02-4.00); Vitamin B12 545 pg/mL (180-914); Vitamin D,25 Hydroxy 35.5 ng/mL (30-100)
[2025-08-01 11:08] LABS: Testosterone, % Free 2.54 % (1.50-4.20); Testosterone, Free 9.91 ng/dL (5.00-21.00)
== END | disposition home or self-care (01) ==
PROVIDERS: PCP Nurse Practitioner Family; Referring Provider Nurse Practitioner Family; Visit Provider Nurse Practitioner Family
DX: Z00.01 Encounter for general adult medical examination with abnormal findings (principal); G54.0 Brachial plexus disorders; R53.83 Other fatigue; R63.5 Abnormal weight gain; M79.601 Pain in right arm; M79.602 Pain in left arm; Z12.5 Encounter for screening for malignant neoplasm of prostate
CPT/HCPCS: 36415; 72050; 80053; 80061; 82306; 82533; 82607; 82728; 83540; 84153; 84402; 84403; 84439; 84443; 85025; 85652; 86140; G0103

== ENCOUNTER → 2025-11-02 | Outpatient (CLI) | payer BC, SELFPAY ==
[2025-11-02 11:26] LABS: Hematocrit 50.9 % (40-54); Hemoglobin 17.5 g/dL (13.0-16.5); Immature Granulocytes Count 0.010 X10^3/uL (0.0-0.0); Mean Corp Hgb Conc 34.4 g/dL (32-36); Mean Corpuscular Volume 90.2 fL (80-94); Mean Platelet Vol. 11.8 fl (6.2-12.0); NRBC Flagged by Analyzer 0 % (0-5); Platelet Count 216 K/mm3 (150-450); RBC Distribution Width CV 12.0 % (11.6-14.6); RBC Distribution Width SD 39.8 fl (35.1-43.9); Red Blood Count 5.64 M/mm3 (4.6-6.2); White Blood Count 5.2 K/mm3 (4.4-11.0)
[2025-11-02 11:55] LABS: AST(SGOT) 24 U/L (<=37); Alanine Aminotransfer ALT/SGPT 23 U/L (<=46); Albumin, Serum 4.8 g/dL (3.5-5.0); Alkaline Phosphatase 52 U/L (40-129); Bilirubin, Direct 0.16 mg/dL (0.00-0.30); Globulin 2.5 g/dL (2.2-4.2)
[2025-11-06 14:09] LABS: Testosterone, % Free 3.49 % (1.50-4.20); Testosterone, Free 23.77 ng/dL (5.00-21.00)
== END | disposition home or self-care (01) ==
LOC: LAB 10:44
PROVIDERS: PCP Nurse Practitioner Family; Referring Provider Nurse Practitioner Family; Visit Provider Nurse Practitioner Family
DX: Z51.81 Encounter for therapeutic drug level monitoring (principal)
CPT/HCPCS: 36415; 80076; 84402; 84403; 85025

== ENCOUNTER → 2025-11-13 | Outpatient (CLI) | payer BC, SELFPAY ==
--- OUTSIDE RECORDS SUMMARY | 2025-11-13 12:49 | XMS RPT_ITS | CCD ---
Author Organization [facility] Care Team Providers Care Recreational Resort Manager Name Role Phone Kwadwo Puckett Primary Care Provider Unavail able CHANELL YOUNG MD Attending Unavailable PHYSICIAN, NONE Primary Care Unavailable Unavailable Primary Care Provider Unavailabl e John, Aby Primary Care Unavailable John, Aby Referring Unavailable Yuli Motley Attending Unavailable John, Aby Primary Care Unavailable John, Aby Referring Unavailable Robotzoila, Yuli Attending Unavailable John, Aby Attending Unavailable John, Aby Referring Unavailable John, Aby Primary Care Unavailable John ASSURANCE AUDITOR-C, Aby Primary Care Physician John ASSURANCE AUDITOR-C, Aby Attending Physician John ASSURANCE AUDITOR-C, Aby Referring Provider [phone] Medications Current Medications Medication Drug Class(es) Dates Sig (Normalized) Sig (Original) amoxicillin 875 mg oral tablet (2 sources) Penicillin-class Antibacterial Start: 03-20-2023 End: 03-27-2023 take 1 tablet by mouth twice daily amoxicillin (AMOXIL) 875 mg tablet Take 1 tablet by mouth twice daily for 7 days. 14 tablet 0 03/20/2023 03/27/2023 Active Comment on above: Take 1 tablet by sultana th twice daily for 7 days. escitalopram 10 mg oral tablet (1 source) Serotonin Reuptake Inhibitor Start: 09-18-2024 take 1 tablet by mouth once daily omeprazole 40 mg delayed release oral capsule (4 sources) Proton Pump Inhibitor Start: 07-05-2024 End: 10-12-2024 take 1 capsule by mouth once daily Start: 06-01-2024 End: 07-03-2024 take 1 capsule by mouth once daily Omeprazole 40 mg capsule,delayed release(DR/EC) Discontinued 40 mg PO daily 30 June 01, 2024 12:00am July 03, 2024 9:53am swallow whole; do not crush, chew, dissolve, cut, break sucralfate 1000 mg oral tablet (1 source) Aluminum Complex Start: 09-18-2024 take 1 tablet by sultana th once at bedtime Completed/Discontinued Medications Medication Drug Class(es) Dates Sig (Normalized) Sig (Original) acetaminophen 325 mg / HYDROcodone bitartrate 5 mg oral tablet (3 sources) Opioid Agonist Start: 12-04-2013 take 1 tablet by mouth every six hours as needed HYDROcodone-acetam inophen 5-325 mg per tablet Take 1 tablet by mouth every 6 hours as needed. 20 tablet 0 12/04/2013 Active Comment on above: Take 1 tablet by sultana th every 6 hours as needed. Vitamin B6-Vitamin E-Magnesium Tablet (1 source) Start: 04-10-2021 End: 06-01-2024 Vitamin B6-Vitamin E-Magnesium Tablet Discontinued 1 {tbl} PO DAILY April 10, 2021 12:00am June 01, 2024 1:20pm Problems Active Problems Problem Classification Problem Date Documented Da te Episodic/Chronic Abdominal hernia (1 source) Umbilical hernia; Translations: [Umbilical hernia without obstruction or gangrene] 09-18-2024 Episodic Abdominal pain (2 sources) Epigastric pain; Translations: [Epigastric pain] 06-01-2024 Episodic Disorders of teeth and jaw (1 source) Unspecified cyst of jaw; Translations: [Cyst of mandible] 04-17-2021 Episodic Esophageal disorders (1 source) Gastroesophageal reflux disease; Translations: [Gastro-esophageal reflux disease without esophagitis] 06-01-2024 Chronic Gastrointestinal hemorrhage (1 source) Hematochezia; Translations: [Melena] 06-01-2024 Episodic Other upper respiratory infections (1 source) Sore throat symptom; Translations: [Acute pharyngitis, unspecified] Episodic Otitis media and related conditions (1 source) Acute right otitis media; Translations: [Otitis media, unspecified, right ear] Episodic Past or Other Problems Problem Classification Problem Date Documented Da te Episodic/Chronic Contraceptive and procreative management (3 sources) Encounter for other procreative management; Translations: [Other specified procreative management] Onset: 08-31-2014 08-31-2014 Episodic Results Test Name Value Interpretation Reference Range Facility Testosterone, Total / Freeon 08-01-2025 TESTOSTER,FREE 9.91 ng/dL Normal 5.00-21.00 [facility] Comment on above: Order Comment: N Performed By: #### L 501.6710, L503.6550, L500.4050, L501.9520, L500.4100, L509.6001, L506.1001, L506.0400, L3100.5310, L503.0106, L503.6150, L101.9900, L501.9910, L100.0100 ####[facility] [address] [place], [place], [phone](910) TESTOSTER,TOTAL 390 ng/dL Normal 264-916 [facility] Comment on above: Order Comment: N Result Comment: Adul t male reference interval is based on a population of healthy nonobese males (BMI <30) between 19 and 39 years old. griffin Chandler.al. JCEM 2017,102;0991-9416. PMID: [id number]. Performed By: #### L 501.6710, L503.6550, L500.4050, L501.9520, L500.4100, L509.6001, L506.1001, L506.0400, L3100.5310, L503.0106, L503.6150, L101.9900, L501.9910, L100.0100 ####[facility] [address] [place], [place], [id number] TESTOSTERONE,%F 2.54 Normal 1.50-4.20 [facility] Comment on above: Order Comment: N Result Comment: Perf ormed at: [facility] [address] [id number] Guest Relations Coordinator: Aki Peoples PhD, Phone: [phone] Performed at: [facility] [address] [id number] Guest Relations Coordinator: Darien Logan MD, Phone: [phone] Performed By: #### L 501.6710, L503.6550, L500.4050, L501.9520, L500.4100, L509.6001, L506.1001, L506.0400, L3100.5310, L503.0106, L503.6150, L101.9900, L501.9910, L100.0100 ####[facility] [address] [place], [address] Absolute lymphocyte countOrd ered By: [place] John on 07-26-2025 Lymphocytes Auto (Unsp spec) [#/Vol] 1.26 10*3/uL 0.83-4.51 [facility] Absolute neutrophil countOrd ered By: [facility] Neutrophils (Bld) [#/Vol] 2.2 10*3/uL 2.0-7.7 [facility] Anion gap in Serum or Plasma Ordered By[facility] on 07-26-2025 Anion gap [Moles/Vol] 14 mmol/L 5-15 [facility] Automated lymphocyte count a s percentage of total leukocytesOrdered By: [facility] on 07-26-2025 Lymphocytes/100 WBC Auto (Unsp spec) 31.7 % 19-41 [facility] BUN/creatinine ratioOrdered By: [facility] on 07-26-2025 Urea nitrogen/Creatinine [Mass ratio] 9.6 mg/mg Low 10-20 [facility] Basophil percentageOrdered B y: [facility] 07-26-2025 Basophils/100 WBC (Bld) 0.8 % 0-1 [facility] Bilirubin, totalOrdered By: [facility] on 07-26-2025 Bilirubin [Mass/Vol] 0.35 mg/dL 0.00-1.30 [facility] CBC W/Diff, Automatedon Absolute Lymph 1.26 X10 3/uL Normal 0.83-4.51 [facility] Comment on above: Performed By: #### L 501.6710, L503.6550, L500.4050, L501.9520, L500.4100, L509.6001, L506.1001, L506.0400, L3100.5310, L503.0106, L503.6150, L101.9900, L501.9910, L100.0100 #### [facility] [address] [place], [address] Absolute Neut 2.2 X10 3/uL Normal 2.0-7.7 [facility] Comment on above: Performed By: #### L 501.6710, L503.6550, L500.4050, L501.9520, L500.4100, L509.6001, L506.1001, L506.0400, L3100.5310, L503.0106, L503.6150, L101.9900, L501.9910, L100.0100 #### [facility] [address] [place], [address] Basophils/100 WBC (Bld) 0.8 % Normal 0-1 [facility] Comment on above: Performed By: #### L 501.6710, L503.6550, L500.4050, L501.9520, L500.4100, L509.6001, L506.1001, L506.0400, L3100.5310, L503.0106, L503.6150, L101.9900, L501.9910, L100.0100 #### [facility] [address] [place], [address] Eosinophils/100 WBC (Bld) 2.3 % Normal 0-5 [facility] Comment on above: Performed By: #### L 501.6710, L503.6550, L500.4050, L501.9520, L500.4100, L509.6001, L506.1001, L506.0400, L3100.5310, L503.0106, L503.6150, L101.9900, L501.9910, L100.0100 #### [facility] [address] [place], [address] Erythrocyte distribution width (RBC) [Ratio] 11.3 % Low 11.6-14.6 [facility] Comment on above: Performed By: #### L 501.6710, L503.6550, L500.4050, L501.9520, L500.4100, L509.6001, L506.1001, L506.0400, L3100.5310, L503.0106, L503.6150, L101.9900, L501.9910, L100.0100 #### [facility] [address] [place], [address] Hematocrit (Bld) [Volume fraction] 46.7 % Normal 40-54 [facility] Comment on above: Performed By: #### L 501.6710, L503.6550, L500.4050, L501.9520, L500.4100, L509.6001, L506.1001, L506.0400, L3100.5310, L503.0106, L503.6150, L101.9900, L501.9910, L100.0100 #### [facility] [address] [place], [address] Hemoglobin (Bld) [Mass/Vol] 16.1 g/dL Normal 13.0-16.5 [facility] Comment on above: Performed By: #### L 501.6710, L503.6550, L500.4050, L501.9520, L500.4100, L509.6001, L506.1001, L506.0400, L3100.5310, L503.0106, L503.6150, L101.9900, L501.9910, L100.0100 #### [facility] [address] [place], [address] IG% 0.300 Normal 0.0-0.9 [facility] Comment on above: Result Comment: IG% - Immature Granulocytes (promyelocytes, myelocytes and metamyelocytes) > 1% indicates that a LEFT SHIFT is Present. Performed By: #### L 501.6710, L503.6550, L500.4050, L501.9520, L500.4100, L509.6001, L506.1001, L506.0400, L3100.5310, L503.0106, L503.6150, L101.9900, L501.9910, L100.0100 #### [facility] [address] [place], [address] Lymphocytes/100 WBC (Bld) 31.7 % Normal 19-41 [facility] Comment on above: Performed By: #### L 501.6710, L503.6550, L500.4050, L501.9520, L500.4100, L509.6001, L506.1001, L506.0400, L3100.5310, L503.0106, L503.6150, L101.9900, L501.9910, L100.0100 #### [facility] [address] [place], [address] MCH (RBC) [Entitic mass] 31.1 pg Normal 27.0-32.0 [facility] Comment on above: Performed By: #### L 501.6710, L503.6550, L500.4050, L501.9520, L500.4100, L509.6001, L506.1001, L506.0400, L3100.5310, L503.0106, L503.6150, L101.9900, L501.9910, L100.0100 #### [facility] [address] [place], [address] MCHC (RBC) [Mass/Vol] 34.5 g/dL Normal 32-36 [facility] Comment on above: Performed By: #### L 501.6710, L503.6550, L500.4050, L501.9520, L500.4100, L509.6001, L506.1001, L506.0400, L3100.5310, L503.0106, L503.6150, L101.9900, L501.9910, L100.0100 #### [facility] [address] [place], [address] MCV (RBC) [Entitic vol] 90.3 fL Normal 80-94 [facility] Comment on above: Performed By: #### L 501.6710, L503.6550, L500.4050, L501.9520, L500.4100, L509.6001, L506.1001, L506.0400, L3100.5310, L503.0106, L503.6150, L101.9900, L501.9910, L100.0100 #### [facility] [address] [place], [address] Monocytes/100 WBC (Bld) 10.6 % High 0-10 [facility] Comment on above: Performed By: #### L 501.6710, L503.6550, L500.4050, L501.9520, L500.4100, L509.6001, L506.1001, L506.0400, L3100.5310, L503.0106, L503.6150, L101.9900, L501.9910, L100.0100 #### [facility] [address] [place], [address] Neutrophils/100 WBC (Bld) 54.3 % Normal 47-70 [facility] Comment on above: Performed By: #### L 501.6710, L503.6550, L500.4050, L501.9520, L500.4100, L509.6001, L506.1001, L506.0400, L3100.5310, L503.0106, L503.6150, L101.9900, L501.9910, L100.0100 #### [facility] [address] [place], [address] Nucleated RBC (Bld) [#/Vol] 0 10*3/uL Normal 0-5 [facility] Comment on above: Performed By: #### L 501.6710, L503.6550, L500.4050, L501.9520, L500.4100, L509.6001, L506.1001, L506.0400, L3100.5310, L503.0106, L503.6150, L101.9900, L501.9910, L100.0100 #### [facility] [address] [place], [address] Platelet mean volume (Bld) [Entitic vol] 11.7 fL Normal 6.2-12.0 [facility] Comment on above: Performed By: #### L 501.6710, L503.6550, L500.4050, L501.9520, L500.4100, L509.6001, L506.1001, L506.0400, L3100.5310, L503.0106, L503.6150, L101.9900, L501.9910, L100.0100 #### [facility] [address] [place], [address] Platelets (Bld) [#/Vol] 234 10*3/uL Normal 150-450 [facility] Comment on above: Performed By: #### L 501.6710, L503.6550, L500.4050, L501.9520, L500.4100, L509.6001, L506.1001, L506.0400, L3100.5310, L503.0106, L503.6150, L101.9900, L501.9910, L100.0100 #### [facility] [address] [place], [address] RBC (Bld) [#/Vol] 5.17 10*6/uL Normal 4.6-6.2 [facility] Comment on above: Performed By: #### L 501.6710, L503.6550, L500.4050, L501.9520, L500.4100, L509.6001, L506.1001, L506.0400, L3100.5310, L503.0106, L503.6150, L101.9900, L501.9910, L100.0100 #### [facility] [address] [place], [place], [phone] (220) RDW SD 37.3 fl Normal 35.1-43.9 [facility] Comment on above: Performed By: #### L 501.6710, L503.6550, L500.4050, L501.9520, L500.4100, L509.6001, L506.1001, L506.0400, L3100.5310, L503.0106, L503.6150, L101.9900, L501.9910, L100.0100 #### [facility] [address] [place], [place], [phone] WBC (Bld) [#/Vol] 4.0 10*3/uL Low 4.4-11.0 [facility] Comment on above: Performed By: #### L 501.6710, L503.6550, L500.4050, L501.9520, L500.4100, L509.6001, L506.1001, L506.0400, L3100.5310, L503.0106, L503.6150, L101.9900, L501.9910, L100.0100 #### [facility] [address] [place], [place], [phone] (029) CRPon 07-26-2025 C-REACTIVE PROT < 3.00 Normal 0.0-3.0 [facility] Comment on above: Performed By: #### L 501.6710, L503.6550, L500.4050, L501.9520, L500.4100, L509.6001, L506.1001, L506.0400, L3100.5310, L503.0106, L503.6150, L101.9900, L501.9910, L100.0100 #### [facility] [address] [place], [address] Calculated very low density lipoprotein (VLDL) cholesterol measurementOrdered By: Aby Lopez on 07-26-2025 Calculated very low density lipoprotein (VLDL) cholesterol measurement 20 mg/dL 5-40 [facility] Carbon dioxide, total [Moles /volume] in Central venous bloodOrdered By: Aby Lopez on 07-26-2025 CO2 [Moles/Vol] 22.2 mmol/L 21.0-32.0 [facility] Cerv Spine 4 or 5 Viewson Cerv Spine 4 or 5 Views [facility] [address] [place] [address] Cerv Spine 4 or 5 Views MR#: [id number] Acct: [id number] Name: GIOVANA JACOBS Rep #: [id number] : 1980 M 44 From: Samson Anthony MD PCP: JERE Freire Status: REG CLI Study: Cerv Spine 4 or 5 Views Date of Exam: 07/26/25 Exam# [id number] Ordering Dr: Aby Lopez PROCEDURE: CERV SPINE 4 OR 5 VIEWS 07/26/2025 REASON FOR EXAM: BRACHIAL PLEXUS DISORDERS TECHNIQUE: Procedure Code: RADSP Modality: DX Procedure: CERV SPINE 4 OR 5 VIEWS COMPARISON: None. FINDINGS: There is loss of the normal cervical lordosis. There are no compression fractures or subluxations. There is degenerative disc disease, C3-4 and C4-5 with narrowing of the intervertebral disc spaces. There is degenerative grade 1 retrolisthesis of C4 on C5. There is no instability with flexion and extension. The paravertebral soft tissues are normal. RAD/Cerv Spine 4 or 5 Views IMPRESSION: 1. Cervical spasm. 2. Degenerative disc disease C3-4 and C4-5. 3. Spondylolisthesis, C4 on C5. Reading Location: [id number] CC: JERE Lopez Bariatric Physician: Signed Normal [facility] Chloride assayOrdered By: Ra karthik Lopez on 07-26-2025 Chloride [Moles/Vol] 103 mmol/L 98-108 [facility] Comprehensive Metabolic Prof ilon 07-26-2025 Albumin [Mass/Vol] 4.7 g/dL Normal 3.5-5.0 [facility] Comment on above: Performed By: #### L 501.6710, L503.6550, L500.4050, L501.9520, L500.4100, L509.6001, L506.1001, L506.0400, L3100.5310, L503.0106, L503.6150, L101.9900, L501.9910, L100.0100 #### [facility] [address] [facility] [place], [place], [phone] Albumin/Globulin [Mass ratio] 1.8 {ratio} Normal 0.9-2.4 [facility] Comment on above: Performed By: #### L 501.6710, L503.6550, L500.4050, L501.9520, L500.4100, L509.6001, L506.1001, L506.0400, L3100.5310, L503.0106, L503.6150, L101.9900, L501.9910, L100.0100 #### [facility] [address] [facility] [place], [place], [phone] ALK PHOS 74 U/L Normal 40-129 [facility] Comment on above: Performed By: #### L 501.6710, L503.6550, L500.4050, L501.9520, L500.4100, L509.6001, L506.1001, L506.0400, L3100.5310, L503.0106, L503.6150, L101.9900, L501.9910, L100.0100 #### [facility] [address] [place], [place], [phone] ALT [Catalytic activity/Vol] 34 U/L Normal <=46 [facility] Comment on above: Performed By: #### L 501.6710, L503.6550, L500.4050, L501.9520, L500.4100, L509.6001, L506.1001, L506.0400, L3100.5310, L503.0106, L503.6150, L101.9900, L501.9910, L100.0100 #### [facility] [address] [place], [place], [id number] AST [Catalytic activity/Vol] 25 U/L Normal <=37 [facility] Comment on above: Performed By: #### L 501.6710, L503.6550, L500.4050, L501.9520, L500.4100, L509.6001, L506.1001, L506.0400, L3100.5310, L503.0106, L503.6150, L101.9900, L501.9910, L100.0100 #### [facility] [address] [place], [place], [phone] Bilirubin [Mass/Vol] 0.35 mg/dL Normal 0.00-1.30 [facility] Comment on above: Performed By: #### L 501.6710, L503.6550, L500.4050, L501.9520, L500.4100, L509.6001, L506.1001, L506.0400, L3100.5310, L503.0106, L503.6150, L101.9900, L501.9910, L100.0100 #### [facility] [address] [place], [place], [id number] BUN/CRE 9.6 RATIO Low 10-20 [facility] Comment on above: Performed By: #### L 501.6710, L503.6550, L500.4050, L501.9520, L500.4100, L509.6001, L506.1001, L506.0400, L3100.5310, L503.0106, L503.6150, L101.9900, L501.9910, L100.0100 #### [facility] [address] [place], [address] Calcium [Mass/Vol] 9.3 mg/dL Normal 7.6-11.0 [facility] Comment on above: Performed By: #### L 501.6710, L503.6550, L500.4050, L501.9520, L500.4100, L509.6001, L506.1001, L506.0400, L3100.5310, L503.0106, L503.6150, L101.9900, L501.9910, L100.0100 #### [facility] [address] [place], [place], [phone] (786) Chloride [Moles/Vol] 103 mmol/L Normal 98-108 [facility] Comment on above: Performed By: #### L 501.6710, L503.6550, L500.4050, L501.9520, L500.4100, L509.6001, L506.1001, L506.0400, L3100.5310, L503.0106, L503.6150, L101.9900, L501.9910, L100.0100 #### [facility] [address] [place], [address] CO2 [Moles/Vol] 22.2 mmol/L Normal 21.0-32.0 [facility] Comment on above: Performed By: #### L 501.6710, L503.6550, L500.4050, L501.9520, L500.4100, L509.6001, L506.1001, L506.0400, L3100.5310, L503.0106, L503.6150, L101.9900, L501.9910, L100.0100 #### [facility] [address] [place], [address] Creatinine [Mass/Vol] 1.12 mg/dL Normal 0.70-1.20 [facility] Comment on above: Performed By: #### L 501.6710, L503.6550, L500.4050, L501.9520, L500.4100, L509.6001, L506.1001, L506.0400, L3100.5310, L503.0106, L503.6150, L101.9900, L501.9910, L100.0100 #### [facility] [address] [place], [address] GAP 14 Normal 5-15 [facility] Comment on above: Performed By: #### L 501.6710, L503.6550, L500.4050, L501.9520, L500.4100, L509.6001, L506.1001, L506.0400, L3100.5310, L503.0106, L503.6150, L101.9900, L501.9910, L100.0100 #### [facility] [address] [place], [address] GFR/1.73 sq M.predicted among non-blacks MDRD (S/P/Bld) [Vol rate/Area] 84 mL/min/{1.73_m2} Normal >60 [facility] Comment on above: Result Comment: mL/m in/1.73m2 CKD-EPI Creatinine Equation (2020) Performed By: #### L 501.6710, L503.6550, L500.4050, L501.9520, L500.4100, L509.6001, L506.1001, L506.0400, L3100.5310, L503.0106, L503.6150, L101.9900, L501.9910, L100.0100 #### [facility] [address] [place], [address] Globulin (S) [Mass/Vol] 2.6 g/dL Normal 2.2-4.2 [facility] Comment on above: Performed By: #### L 501.6710, L503.6550, L500.4050, L501.9520, L500.4100, L509.6001, L506.1001, L506.0400, L3100.5310, L503.0106, L503.6150, L101.9900, L501.9910, L100.0100 #### [facility] [address] [place], [address] Glucose [Mass/Vol] 89 mg/dL Normal 70-99 [facility] Comment on above: Performed By: #### L 501.6710, L503.6550, L500.4050, L501.9520, L500.4100, L509.6001, L506.1001, L506.0400, L3100.5310, L503.0106, L503.6150, L101.9900, L501.9910, L100.0100 #### [facility] [address] [place], [address] Potassium [Moles/Vol] 4.2 mmol/L Normal 3.3-5.1 [facility] Comment on above: Performed By: #### L 501.6710, L503.6550, L500.4050, L501.9520, L500.4100, L509.6001, L506.1001, L506.0400, L3100.5310, L503.0106, L503.6150, L101.9900, L501.9910, L100.0100 #### [facility] [address] [place], [address] Sodium [Moles/Vol] 140 mmol/L Normal 133-145 [facility] Comment on above: Performed By: #### L 501.6710, L503.6550, L500.4050, L501.9520, L500.4100, L509.6001, L506.1001, L506.0400, L3100.5310, L503.0106, L503.6150, L101.9900, L501.9910, L100.0100 #### [facility] [address] [place], [place], [phone] (435) T PROT 7.3 g/dL Normal 5.9-8.4 [facility] Comment on above: Performed By: #### L 501.6710, L503.6550, L500.4050, L501.9520, L500.4100, L509.6001, L506.1001, L506.0400, L3100.5310, L503.0106, L503.6150, L101.9900, L501.9910, L100.0100 #### [facility] [address] [place], [place], [id number] Urea nitrogen [Mass/Vol] 11 mg/dL Normal 4-19 [facility] Comment on above: Performed By: #### L 501.6710, L503.6550, L500.4050, L501.9520, L500.4100, L509.6001, L506.1001, L506.0400, L3100.5310, L503.0106, L503.6150, L101.9900, L501.9910, L100.0100 #### [facility] [address] [place], [place], [phone] Eosinophil percentageOrdered By: Aby Lopez on 07-26-2025 Eosinophils/100 WBC (Bld) 2.3 % 0-5 [facility] Erythrocyte Sed Rateon 07-26 SED RATE 3 mm/hr Normal 0-20 [facility] Comment on above: Performed By: #### L 501.6710, L503.6550, L500.4050, L501.9520, L500.4100, L509.6001, L506.1001, L506.0400, L3100.5310, L503.0106, L503.6150, L101.9900, L501.9910, L100.0100 #### [facility] [address] [place], [address] Erythrocyte distribution wid th ratioOrdered By: Aby Lopez on 07-26-2025 Erythrocyte distribution width (RBC) [Ratio] 11.3 % Low 11.6-14.6 [facility] Erythrocyte distribution wid th standard deviationOrdered By: Abyrhonda Lopez on 07-26-2025 Erythrocyte distribution width (RBC) [Ratio] 37.3 fl 35.1-43.9 [facility] Erythrocyte sedimentation ra teOrdered By: Abyrhonda Lopez on 07-26-2025 ESR (Bld) [Velocity] 3 mm/h 0-20 [facility] Ferritinon 07-26-2025 Ferritin [Mass/Vol] 259 ng/mL Normal 37-417 [facility] Comment on above: Performed By: #### L 501.6710, L503.6550, L500.4050, L501.9520, L500.4100, L509.6001, L506.1001, L506.0400, L3100.5310, L503.0106, L503.6150, L101.9900, L501.9910, L100.0100 ####[facility] [address] [place], [place], [id number] Free testosterone percentage Ordered By: Aby Lopez on 07-26-2025 Testosterone Free/Testosterone.total [Mass fraction] 2.54 % 1.50-4.20 [facility] Comment on above: Performed at: [facility] [address] [id number] Director: Aki Peoples PhD, Phone: [phone] at: [facility] [id number] Director: Darien Logan MD, Phone: [phone] Glomerular filtration rate ( GFR) estimation/1.73 sq m using serum, plasma, or whole bOrdered By: Aby Lopez on 07-26-2025 GFR/1.73 sq M.predicted among non-blacks MDRD (S/P/Bld) [Vol rate/Area] 84 mL/min/{1.73_m2} >60 [facility] Comment on above: mL/min/1.73m2 CKD-EP I Creatinine Equation (2020) Hematocrit Auto (Bld) [Volum e fraction]Ordered By: Aby Lopez on 07-26-2025 Hematocrit (Bld) [Volume fraction] 46.7 % 40-54 [facility] Hemoglobin measurementOrdere d By: Aby Lopez on 07-26-2025 Hemoglobin (Bld) [Mass/Vol] 16.1 g/dL 13.0-16.5 [facility] Immature granulocytes/100 WB C Auto (Bld)Ordered By: Aby Lopez on 07-26-2025 Immature granulocytes/100 WBC (Bld) 0.300 % 0.0-0.9 [facility] Comment on above: IG% - Immature Granu locytes (promyelocytes, myelocytes and metamyelocytes) > 1% indicates that a LEFT SHIFT is Present. Ironon 07-26-2025 Iron [Mass/Vol] 76 ug/dL Normal 65-175 [facility] Comment on above: Performed By: #### L 501.6710, L503.6550, L500.4050, L501.9520, L500.4100, L509.6001, L506.1001, L506.0400, L3100.5310, L503.0106, L503.6150, L101.9900, L501.9910, L100.0100 ####[facility] [address] [place], [place], [id number] Iron measurement (mass/mass) Ordered By: Aby Lopez on 07-26-2025 Iron (Unsp spec) [Mass/Mass] 76 ug/dL 65-175 [facility] L509.6001on 07-26-2025 CORTISOL 19.40 ug/dL High 6.02-18.40 [facility] Comment on above: Performed By: #### L 501.6710, L503.6550, L500.4050, L501.9520, L500.4100, L509.6001, L506.1001, L506.0400, L3100.5310, L503.0106, L503.6150, L101.9900, L501.9910, L100.0100 ####[facility] [address] [place], [place], [id number] LDL calc ser/plasOrdered By: Aby Lopez on 07-26-2025 Cholesterol in LDL [Mass/Vol] 136 mg/dL [facility] Comment on above: Ajzvkgisyz=351-454 m g/dL & Higher Dhns=618 mg/dL or greaterFriedwald Equation for LDL-C Laboratory - Chemistry and C hemistry - challengeOrdered By: Aby Lopez on 07-26-2025 AST [Catalytic activity/Vol] 25 U/L <38 [facility] Lipid Profileon 07-26-2025 CHOL:HDL 3.39 Normal [facility] Comment on above: Performed By: #### L 501.6710, L503.6550, L500.4050, L501.9520, L500.4100, L509.6001, L506.1001, L506.0400, L3100.5310, L503.0106, L503.6150, L101.9900, L501.9910, L100.0100 #### [facility] [address] [place], [place], [id number] Cholesterol [Mass/Vol] 221 mg/dL High <=200 [facility] Comment on above: Result Comment: Chol esterol level, Desirable <200 mg/dL Borderline high cholesterol 200-239 mg/dL High cholesterol >=240 mg/dL Recommendations of the NCEP Adult Treatment Panel for the following risk-cutoff thresholds for the [place] population. Performed By: #### L 501.6710, L503.6550, L500.4050, L501.9520, L500.4100, L509.6001, L506.1001, L506.0400, L3100.5310, L503.0106, L503.6150, L101.9900, L501.9910, L100.0100 #### [facility] [address] [place], [address] Cholesterol in HDL [Mass/Vol] 65 mg/dL Normal [facility] Comment on above: Result Comment: Sarah onal Cholesterol Education Program (NCEP) guidelines: <40 mg/dL: Low HDL-cholesterol (major risk factor for CHD) >= 60 mg/dL: High HDL-cholesterol (negative risk factor for CHD) HDL-cholesterol is affected by a number of factors, e.g. smoking, exercise, hormones, sex and age. Performed By: #### L 501.6710, L503.6550, L500.4050, L501.9520, L500.4100, L509.6001, L506.1001, L506.0400, L3100.5310, L503.0106, L503.6150, L101.9900, L501.9910, L100.0100 #### [facility] [address] [facility] [place], [address] Cholesterol in LDL [Mass/Vol] 136 mg/dL Normal [facility] Comment on above: Result Comment: Bord xcxdke=609-805 mg/dL Higher Oizh=833 mg/dL or greater Friedwald Equation for LDL-C Performed By: #### L 501.6710, L503.6550, L500.4050, L501.9520, L500.4100, L509.6001, L506.1001, L506.0400, L3100.5310, L503.0106, L503.6150, L101.9900, L501.9910, L100.0100 #### [facility] [address] [place], [address] Cholesterol in VLDL [Mass/Vol] 20 mg/dL Normal 5-40 [facility] Comment on above: Performed By: #### L 501.6710, L503.6550, L500.4050, L501.9520, L500.4100, L509.6001, L506.1001, L506.0400, L3100.5310, L503.0106, L503.6150, L101.9900, L501.9910, L100.0100 #### [facility] [address] [place], [address] Triglyceride [Mass/Vol] 101 mg/dL Normal [facility] Comment on above: Result Comment: The drugs N-Acetylcysteine and Metamizole may falsely depress this assay. Normal range: <150 mg/dL Borderline High: 150-199 mg/dL High: 200-499 mg/dL Very High: >500 mg/dL Performed By: #### L 501.6710, L503.6550, L500.4050, L501.9520, L500.4100, L509.6001, L506.1001, L506.0400, L3100.5310, L503.0106, L503.6150, L101.9900, L501.9910, L100.0100 #### [facility] [address] [place], [address] MCV (mean corpuscular volume ) determinationOrdered By: Aby Lopez on 07-26-2025 MCV (RBC) [Entitic vol] 90.3 fL 80-94 [facility] Mean corpuscular hemoglobin (MCH) determinationOrdered By: Aby Lopez on 07-26-2025 MCH (RBC) [Entitic mass] 31.1 pg 27.0-32.0 [facility] Mean corpuscular hemoglobin concentration (MCHC) determinationOrdered By: Aby Lopez on 07-26-2025 MCHC (RBC) [Mass/Vol] 34.5 g/dL 32-36 [facility] Mean platelet volume determi nationOrdered By: Aby Lopez on 07-26-2025 Platelet mean volume (Bld) [Entitic vol] 11.7 fL 6.2-12.0 [facility] Monocyte percentageOrdered B y: Aby Lopez on 07-26-2025 Monocytes/100 WBC (Bld) 10.6 % High 0-10 [facility] Neutrophil percentageOrdered By: Aby Lopez on 07-26-2025 Neutrophils/100 WBC (Bld) 54.3 % 47-70 [facility] Nucleated red blood cell per centageOrdered By: Aby Lopez on 07-26-2025 Nucleated RBC/100 WBC (Bld) [Ratio] 0 % 0-5 [facility] PSA,Total - Annual Screenon 07-26-2025 PSA,TOT SCREEN 0.44 ng/mL Normal 0.02-4.00 [facility] Comment on above: Result Comment: This test was performed using the [employer] tPSA method. Measured values of a patient??sample can vary depending on the testing procedure used. PSA values determined on patient samples by different testing procedures cannot be used interchangeably. If there is a change in PSA assays while monitoring therapy, sequential testing should be performed to confirm baseline values. Performed By: #### L 501.6710, L503.6550, L500.4050, L501.9520, L500.4100, L509.6001, L506.1001, L506.0400, L3100.5310, L503.0106, L503.6150, L101.9900, L501.9910, L100.0100 #### [facility] [address] [place], [place], [id number] Platelet countOrdered By: Ra karthik Lopez on 07-26-2025 Platelets (Bld) [#/Vol] 234 10*3/uL 150-450 [facility] Potassium measurement (mass/ volume)Ordered By: Aby Lopez on 07-26-2025 Potassium (Unsp spec) [Mass/Vol] 4.2 mmol/L 3.3-5.1 [facility] RBC Auto (Bld) [#/Vol]Ordere d By: Aby Lopez on 07-26-2025 RBC (Bld) [#/Vol] 5.17 10*6/uL 4.6-6.2 [facility] Screening total cholesterol/ high density lipoprotein (HDL) cholesterol ratioOrdered By: Aby Lopez on 07-26-2025 Cholesterol.total/Choles terol in HDL [Mass ratio] 3.39 {ratio} [facility] Serum creatinine measurement (mass/volume)Ordered By: Aby Lopez on 07-26-2025 Creatinine [Mass/Vol] 1.12 mg/dL 0.70-1.20 [facility] Serum globulin measurementOr dered By: Aby Lopez on 07-26-2025 Globulin (S) [Mass/Vol] 2.6 g/dL 2.2-4.2 [facility] Serum glucose measurement (m ass/volume)Ordered By: Aby Lopez on 07-26-2025 Glucose [Mass/Vol] 89 mg/dL 70-99 [facility] Serum or plasma C reactive p rotein measurement (mass/volume)Ordered By: Aby Lopez on 07-26-2025 CRP [Mass/Vol] mg/L 0.0-3.0 [facility] Serum or plasma alanine mathis otransferase (ALT) measurementOrdered By: Aby Lopez on 07-26-2025 ALT [Catalytic activity/Vol] 34 U/L <47 [facility] Serum or plasma albumin timothy urement (mass/volume)Ordered By: Aby Lopez on 07-26-2025 Albumin [Mass/Vol] 4.7 g/dL 3.5-5.0 [facility] Serum or plasma albumin/glob ulin mass ratioOrdered By: Aby Lopez on 07-26-2025 Albumin/Globulin [Mass ratio] 1.8 {ratio} 0.9-2.4 [facility] Serum or plasma alkaline carmelina sphatase measurementOrdered By: Aby Lopez on 07-26-2025 ALP [Catalytic activity/Vol] 74 U/L 40-129 [facility] Serum or plasma calcium timothy urement (mass/volume)Ordered By: Aby Lopez on 07-26-2025 Calcium [Mass/Vol] 9.3 mg/dL 7.6-11.0 [facility] Serum or plasma cholesterol in HDL measurement (mass/volume)Ordered By: Aby Lopez on 07-26-2025 Cholesterol in HDL [Mass/Vol] 65 mg/dL >40 [facility] Comment on above: National Cholesterol Education Program (NCEP) guidelines:<40 mg/dL: Low HDL-cholesterol (major risk factor for CHD)>= 60 mg/dL: High HDL-cholesterol (negative risk factor for CHD)HDL-cholesterol is affected by a number of factors, e.g. smoking, exercise, hormones, sex and age. Serum or plasma cholesterol measurement (mass/volume)Ordered By: Aby Lopez on 07-26-2025 Cholesterol [Mass/Vol] 221 mg/dL High <201 [facility] Comment on above: Cholesterol level, D esirable <200 mg/dLBorderline high cholesterol 200-239 mg/dLHigh cholesterol >=240 mg/dLRecommendations of the NCEP Adult Treatment Panel for the following risk-cutoff thresholds for the [place] population. Serum or plasma cortisol collette surement (mass/volume)Ordered By: Aby Lopez on 07-26-2025 Cortisol [Mass/Vol] 19.40 ug/dL High 6.02-18.40 [facility] Serum or plasma ferritin collette surement (mass/volume)Ordered By: Aby Lopez on 07-26-2025 Ferritin [Mass/Vol] 259 ng/mL 37-417 [facility] Serum or plasma free testost erone measurement (mass/volume)Ordered By: Aby Lopez on 07-26-2025 Testosterone Free [Mass/Vol] 9.91 ng/dL 5.00-21.00 [facility] Serum or plasma urea nitroge n measurement (mass/volume)Ordered By: Aby Lopez on 07-26-2025 Urea nitrogen [Mass/Vol] 11 mg/dL 4-19 [facility] Sodium levelOrdered By: Kassidy Lopez on 07-26-2025 Sodium [Moles/Vol] 140 mmol/L 133-145 [facility] T4 Free Directon 07-26-2025 T4 FREE DIRECT 1.30 ng/dL Normal 0.76-1.46 [facility] Comment on above: Order Comment: N Performed By: #### L 501.6710, L503.6550, L500.4050, L501.9520, L500.4100, L509.6001, L506.1001, L506.0400, L3100.5310, L503.0106, L503.6150, L101.9900, L501.9910, L100.0100 ####[facility] [address] [place], [place], [id number] T4 freeOrdered By: Aby rodrigez on 07-26-2025 Free T4 [Mass/Vol] 1.30 ng/dL 0.76-1.46 [facility] TSH DL <= 0.005 mIU/L QnOrde red By: Aby Lopez on 07-26-2025 TSH Qn 1.020 uIU/mL 0.300-4.200 [facility] Testosterone, totalOrdered B y: Aby Lopez on 07-26-2025 Testosterone [Mass/Vol] 390 ng/dL 264-916 [facility] Comment on above: Adult male reference interval is based on a population ofhealthy nonobese males (BMI <30) between 19 and 39 yearsold. griffin Chandler.al. JCEM 2017,102;0413-8139. PMID:[id number]. Thyroid Stim Hormone (TSH)on 07-26-2025 TSH 1.020 uIU/mL Normal 0.300-4.200 [facility] Comment on above: Performed By: #### L 501.6710, L503.6550, L500.4050, L501.9520, L500.4100, L509.6001, L506.1001, L506.0400, L3100.5310, L503.0106, L503.6150, L101.9900, L501.9910, L100.0100 #### [facility] [address] [place], [address] Total proteinOrdered By: Babs Lopez on 07-26-2025 Protein [Mass/Vol] 7.3 g/dL 5.9-8.4 [facility] Triglycerides measurementOrd ered By: Aby Lopez on 07-26-2025 Triglyceride [Mass/Vol] 101 mg/dL <199 [facility] Comment on above: The drugs N-Acetylcy steine and Metamizole may falsely depress this assay. Normal range: <150 mg/dLBorderline High: 150-199 mg/dLHigh: 200-499 mg/dLVery High: >500 mg/dL Vitamin B12on 07-26-2025 Cobalamin (Vitamin B12) [Mass/Vol] 545 pg/mL Normal 180-914 [facility] Comment on above: Performed By: #### L 501.6710, L503.6550, L500.4050, L501.9520, L500.4100, L509.6001, L506.1001, L506.0400, L3100.5310, L503.0106, L503.6150, L101.9900, L501.9910, L100.0100 #### [facility] [address] [facility] [place], [place], [id number] Vitamin B12 ser/plasOrdered By: Aby Lopez on 07-26-2025 Cobalamin (Vitamin B12) [Mass/Vol] 545 pg/mL 180-914 [facility] Vitamin D,25 Hydroxyon 07-26 Vitamin D 25-OH 35.5 ng/mL Normal 30-100 [facility] Comment on above: Result Comment: Mary min D Status Deficiency: <20 ng/mL (50nmol/L) Insufficiency: 20-30 ng/mL (50-75 nmol/L) Sufficiency: 30-100 ng/mL (75-250 nmol/L) Toxicity: >100 ng/mL (>250 nmol/L) Performed By: #### L 501.6710, L503.6550, L500.4050, L501.9520, L500.4100, L509.6001, L506.1001, L506.0400, L3100.5310, L503.0106, L503.6150, L101.9900, L501.9910, L100.0100 ####[facility] [address] [place], [place], [id number] White blood cell (WBC) count Ordered By: Aby Lopez on 07-26-2025 WBC (Bld) [#/Vol] 4.0 10*3/uL Low 4.4-11.0 [facility] Surgery Visit Reporton 10-03 Surgery Visit Report [facility] [address] [place] [address] OFFICE VISIT Date of Service: 10/03/24 MR#: [id number] Acct: [id number] Name: GIOVANA JACOBS Rep #: [id number] : 1980 Provider: Dr. Yuli cummings MD Age/Sex: 44/M Location: [facility] Status: Signed Intake Vital Signs 09/18/24 13:54 Height 6 ft 2 in Weight: 225 lb BMI 28.8 BP 131/88 H Blood Pressure Location Rt brachial Position Sitting Respiration 17 Pulse 67 Pulse Source Monitor Temp 97 F L Temp Source Temporal Pulse Oximetry (%) 98 Oxygen Delivery Method room air Intake Visit Reasons: MED CHECK Chief Complaint: med check Allergies No Known Allergies Allergy (Verified 10/03/24 13:44) Medications ???Medication ???Instructions ???Recorded ???Confirmed ???Type omeprazole 40 mg capsule,delayed 40 mg PO DAILY #30 caps 07/06/24 10/03/24 Rx release escitalopram oxalate 10 mg tablet 10 mg PO QDAY 09/18/24 10/03/24 History sucralfate 1 gram tablet 1 g PO QACHS #56 tabs 09/18/24 10/03/24 Rx PFSH Medical History Wears contact lenses Wears glasses Alcohol use Smoker Surgical History History of wisdom tooth extraction Social History Smoking Status: Current every day smoker tobacco type: e-cigarettes alcohol intake: current substance use type: does not use HPI HPI HPI: 44-year-old male presents for follow-up due to abdominal pain, umbilical hernia and reflux. Did give patient a prescription for Carafate. Patient states that did help with his reflux and bloating. Patient states that the umbilical hernia not having issues when he is lifting states he can have some pain at that site if he coughs a lot. Otherwise does not have issues with it. ROS General General: Yes weight change and fatigue; No appetite, colon cancer or breast cancer HEENT HEENT: No difficulty swallowing, eye injury, eye surgery, swollen glands or hoarseness Endo Endocrine: No thyroid disease, diabetes mellitus, thyroid cancer, Hair loss, heat intolerance or cold intolerance Skin Skin: No rash or changing moles Musc Musculoskeletal: No back problems, arthritis, rheumatoid arthritis, gout or joint pain Cardio Cardiovascular: No murmur, pacemaker, heart disease, atrial fibrillation, high blood pressure, heart attack, heart stent, palpitations, shortness of breat with exertion or chest pain Psych Psychiatric: No depression, anxiety or hearing voices Resp Respiratory: No shortness of breath, No sleep apnea, No cough, No COPD, No asthma, No emphysema and No wheezing Gastro Gastrointestinal: Yes abdominal pain, No nausea or vomiting, No diarrhea, No constipation, No blood in stool, Yes acid reflux, No hemorrhoids, No ulcers, No gallbladder problem and No black,tarry stools Kushal Hematologic: No blood thinners, No blood disorders, No bleeding, No anemia and No blood clots Neuro Neurologic: No numbness and No tingling Exam Const General: cooperative, healthy appearing, comfortable and no acute distress Resp Effort Inspection: normal respiratory effort Cardio Rate: regular rate GI Inspection: non-distended Palpation: soft, no guarding and nontender Neuro General: patient oriented x3 Psych Affect: normal affect Assessment and Plan Assessment and Plan (1) Acid reflux: Status: Acute (2) Umbilical hernia: Status: Acute Plan Discussed with patient as far as his umbilical hernia would recommend repair if he starts to have more issues with that at that time. Recommend patient continue the omeprazole as he did complete the Carafate. Discussed that if it seems to get worse patient can get the refill for additional 2 weeks of the Carafate. Follow-up as needed. Patient is agreeable to plan. Patient did note that he is seems more fatigued and has to take a nap after lunch even if he hardly eats anything. Recommend patient take a food journal and make sure he is eating adequate calories and nutrition and follow-up with PCP. Patient was agreeable with plan. Yuli Motley M.D. Pager: [phone] [facility] [address] [place] [address], [facility], [address] [place] [id number] Office: [phone] Coding Level of Care Code Off vis,est,level 3 Diagnoses Acid reflux K21.9 Umbilical hernia K42.9 10/06/24 1244 Date Yuli Lópezignkendal Signature: Date (if applicable) CC: JERE Lopez Normal [facility] Surgery Visit Reporton 09-18 Surgery Visit Report [facility] [address] [facility]. [address] [place] [address] OFFICE VISIT Date of Service: 09/18/24 MR#: [id number] Acct: [id number] Name: GIOVANA JACOBS Rep #: [id number] : 1980 Provider: Dr. Yuli cummings MD Age/Sex: 44/M Location: [facility] Status: Signed Intake Vital Signs 07/05/24 08:00 09/18/24 13:54 Height 6 ft 2 in 6 ft 2 in Weight: 225 lb BMI 28.8 BP 131/88 H Blood Pressure Location Rt brachial Position Sitting Respiration 17 Pulse 67 Pulse Source Monitor Temp 97 F L Temp Source Temporal Pulse Oximetry (%) 98 Oxygen Delivery Method room air Intake Visit Reasons: UMBILICAL HERNIA Chief Complaint: umbilical hernia Is patient in pain?: Yes Allergies No Known Allergies Allergy (Verified 09/18/24 13:56) Medications ???Medication ???Instructions ???Recorded ???Confirmed ???Type omeprazole 40 mg capsule,delayed 40 mg PO DAILY #30 caps 07/06/24 09/18/24 Rx release escitalopram oxalate 10 mg tablet 10 mg PO QDAY 09/18/24 09/18/24 History sucralfate 1 gram tablet 1 g PO QACHS #56 tabs 09/18/24 09/18/24 Rx PFSH Medical History Wears contact lenses Wears glasses Alcohol use Smoker Surgical History History of wisdom tooth extraction Social History Smoking Status: Current every day smoker tobacco type: e-cigarettes alcohol intake: current substance use type: does not use HPI HPI HPI: 44-year-old male presents due to umbilical hernia. Patient was previously seen for reflux and has been on his omeprazole and states that his appetite did improve after being on omeprazole. Patient states that he occasionally had some abdominal pain near his umbilicus after and with eating. Patient has not tried to reduce his hernia on his own. Patient is also concerned about the area above his hernia???diastases. Patient states he still has some bloating after eating as well. ROS General General: Yes weight change and fatigue; No appetite, colon cancer or breast cancer HEENT HEENT: No difficulty swallowing, eye injury, eye surgery, swollen glands or hoarseness Endo Endocrine: No thyroid disease, diabetes mellitus, thyroid cancer, Hair loss, heat intolerance or cold intolerance Skin Skin: No rash or changing moles Musc Musculoskeletal: No back problems, arthritis, rheumatoid arthritis, gout or joint pain Cardio Cardiovascular: No murmur, pacemaker, heart disease, atrial fibrillation, high blood pressure, heart attack, heart stent, palpitations, shortness of breat with exertion or chest pain Psych Psychiatric: No depression, anxiety or hearing voices Resp Respiratory: No shortness of breath, No sleep apnea, No cough, No COPD, No asthma, No emphysema and No wheezing Gastro Gastrointestinal: Yes abdominal pain, No nausea or vomiting, No diarrhea, No constipation, No blood in stool, Yes acid reflux, No hemorrhoids, No ulcers, No gallbladder problem and No black,tarry stools Kushal Hematologic: No blood thinners, No blood disorders, No bleeding, No anemia and No blood clots Neuro Neurologic: No numbness and No tingling Exam Const General: cooperative, healthy appearing, comfortable and no acute distress [facility] Head: normocephalic and atraumatic Neck Neck: supple Resp Effort Inspection: normal respiratory effort Cardio Rate: regular rate GI Inspection: non-distended Palpation: soft, hernia umbilical (Reducible about 1 cm) and nontender Skin General: no rashes or lesions noted Neuro General: CN's II-XI intact bilaterally Extrem General: normal to inspection Psych Mental Status: mental status grossly normal Attitude: cooperative Assessment and Plan Assessment and Plan (1) Umbilical hernia: Status: Acute (2) Epigastric abdominal pain: Status: Acute Medications: New sucralfate Take an hour before meals and at bedtime 1 g PO QACHS 56 tabs 1RF Plan Discussed with patient that his umbilical hernia is not likely causing his issues are discomfort after eating/bloating. Would recommend patient try the Carafate along with the omeprazole see if that improves. Patient will follow-up in 2 to 3 weeks and see how that is doing. We can talk more about possible hernia repair at that time. Patient is agreeable with plan. Yuli Motley M.D. Pager: [phone] [facility] [address] [place] [address], [address] [place] [address] Office: [phone] Coding Level of Care Code Off vis,est,level 3 Diagnoses Umbilical hernia K42.9 Epigastric abdominal pain R10.13 09/20/24 0725 Date Yuli Cano (more content not included)... [facility] Visit ([facility]) GIOVANA JACOBS ([id number]) 1980 M Date Time Provider Department 03/20/23 9:45 AM [facility]H [facility] During your visit today, we recorded the following information about you: Temperature Pulse Respiration Blood pressure 98.1 degrees 67/minute 18/minute 122/64 Weight 94.2 kg Mitzi Trinh APRN.BRICK UNLOADER TENDER 03/20/2023 10:15 AM Signed Subjective HPI Giovana presents with a 5 days hx of sorethroat on both sides and earache. He states he could not sleep well last night due to the pain in his ears and throat. He has not had a fever, he is eating and drinking but states it is painful to do so. 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 He is a smoker No past medical history on file. No past surgical history on file. ALLERGIES Patient has no known allergies. MEDICATIONS amoxicillin (AMOXIL) 875 mg tablet Take 1 tablet by mouth twice daily for 7 days. HYDROcodone-acetamin ophen 5-325 mg per tablet Take 1 tablet by mouth every 6 hours as needed. No family history on file. Social History Tobacco Use Smoking status: Former Packs/day: 0.50 Types: Cigarettes Smokeless tobacco: Current Tobacco comments: Vape Substance Use Topics Drug use: Never Review of Systems HENT: Positive for ear pain and sore throat. All other systems reviewed and are negative. Objective Physical Exam Vitals and nursing note reviewed. Constitutional: General: He is not in acute distress. Appearance: Normal appearance. He is not ill-appearing or toxic-appearing. HENT: Head: Normocephalic and atraumatic. Right Ear: Tympanic membrane, ear canal and external ear normal. There is no impacted cerumen. Ears: Comments: Left TM slightly dull canal reddened Nose: Nose normal. Mouth/Throat: Mouth: Mucous membranes are moist. Pharynx: Oropharynx is clear. Posterior oropharyngeal erythema present. No oropharyngeal exudate. Eyes: Extraocular Movements: Extraocular movements intact. Conjunctiva/sclera: Conjunctivae normal. Pupils: Pupils are equal, round, and reactive to light. Neck: Vascular: No carotid bruit. Cardiovascular: Rate and Rhythm: Normal rate and regular rhythm. Pulses: Normal pulses. Heart sounds: Normal heart sounds. No murmur heard. Pulmonary: Effort: Pulmonary effort is normal. Breath sounds: Normal breath sounds. Abdominal: General: Abdomen is flat. Palpations: Abdomen is soft. Musculoskeletal: General: Normal range of motion. Cervical back: Normal range of motion and neck supple. No rigidity or tenderness. Lymphadenopathy: Cervical: Cervical adenopathy (slight bilateraly) present. Skin: General: Skin is warm and dry. Capillary Refill: Capillary refill takes less than 2 seconds. Neurological: General: No focal deficit present. Mental Status: He is alert and oriented to person, place, and time. ASSESSMENT/PLAN: 1. Sore throat - ICD9: 462, ICD10: J02.9 - suspect viral If worsens return or report to ED Increase fluids - STREP A MOLECULAR (POC) Otitis Amox 875 bid x 7 days Mitzi Trinh APRN.BRICK UNLOADER TENDER Allergies As of Date: 03/20/2023 (No Known Allergies) Date Reviewed: 03/20/2023 Reviewed by: Johanna Cavazos LPN - Fully Assessed Reason for Visit: Pain, Throat [856] Cmt: Pt reported throat, ear pain rated 9, x4 days. Primary Visit Diagnosis:Sore throat [J02.9] Other Visit Diagnosis:Acute otitis media, right [H66.91] Order(s):STREP A MOLECULAR (POC) [0760724] Order #: [id number]. #:[id number] amoxicillin (AMOXIL) 875 mg tabletTake 1 tablet by mouth twice daily for 7 days.Disp: 14 tabletRfl: 0 Prescriptions as of 03/20/2023 - amoxicillin (AMOXIL) 875 mg tablet Take 1 tablet by mouth twice daily for 7 days. - HYDROcodone-acetamin ophen 5-325 mg per tablet Take 1 tablet by mouth every 6 hours as needed. Problem List As Of Date 03/20/2023 Noted Resolved Other specified procreative management(V26.89) *08/31/2014 Prescriptions ordered this encounter Disp Refills Start End AMOXICILLIN 875 MG TABLET 14 t* 0 03/20/2023 03/27/2023 Route: ORAL Sig: Take 1 tablet by mouth twice daily for 7 days. Encounter Status:Closed by MITZI TRINH on 03/20/23 [facility] Neelima 03-20-2023 [facility] Telephone (UCWSTR) GIOVANA JACOBS ([id number]) 1980 M Date Time Provider Department 03/20/23 MITZI TRINHWSKAHLIL During your visit today, we recorded the following information about you: Natalia Martinez Dimas Pss 03/20/2023 10:48 AM Signed Please call patient, he is unsure of how many prescriptions he should be picking. [facility] [place].canelo Clement 03/20/2023 11:07 AM Signed Patient given results and verbalized understanding of instructions given. Brittni Clement Allergies As of Date: 03/20/2023 (No Known Allergies) Date Reviewed: 03/20/2023 Reviewed by: Johanna Cavazos LPN - Fully Assessed Reason for Visit: Patient Question [4297] Prescriptions as of 03/20/2023 - amoxicillin (AMOXIL) 875 mg tablet Take 1 tablet by mouth twice daily for 7 days. - HYDROcodone-acetamin ophen 5-325 mg per tablet Take 1 tablet by mouth every 6 hours as needed. Problem List As Of Date 03/20/2023 Noted Resolved Other specified procreative management(V26.89) *08/31/2014 Encounter Status:Closed by BRITTNI CLEMENT on 03/20/23 Normal [facility] STREP A MOLECULAR (POC)on Procedural Control Valid [facility] Strep A (POCT) Negative Negative [facility] Vital Signs Date Time Vital Sign Value Performing Clinician Mauliki el 03-20-2023 09:49-0400 Body temperature 98.1 [degF] Mitzi Trinh APRN.CNP Work Phone: [facility] 03-20-2023 09:49-0400 Body weight 94.17 kg Mitzi Trinh APRN.CNP Work Phone: [facility] 03-20-2023 09:49-0400 Diastolic blood pressure 64 mm[Hg] Mitzi Trinh APRN.CNP Work Phone: [facility] 03-20-2023 09:49-0400 Heart rate 67 /min Mitzi Trinh APRN.CNP Work Phone: [facility] 03-20-2023 09:49-0400 Respiratory rate 18 /min Mitzi Trinh INTERIOR DECORATOR [employer]HANGING.AGNES Work Phone: [facility] 03-20-2023 09:49-0400 SaO2% (BldA) [Mass fraction] 97 % Mitzi Trinh INTERIOR DECORATOR [employer]ERHANGING.BRICK UNLOADER TENDER Work Phone: [facility] 03-20-2023 09:49-0400 Systolic blood pressure 122 mm[Hg] Mitzi Trinh INTERIOR DECORATOR PAPERHANGING.BRICK UNLOADER TENDER Work Phone: [facility] Encounters Encounter Date Encounter Type Care Provider Facility Start: 08-10-2025 Encounter for genera l adult medical examination with abnormal findings [facility] Start: 07-26-2025 End: 07-26-2025 ambulatory [facility] ASSURANCE AUDITOR-C Work Phone: -Radiology [facility] Start: 07-26-2025 End: 07-26-2025 Patient encounter procedure [facility] ASSURANCE AUDITOR-C -Radiology [facility] Work Phone: Start: 07-26-2025 End: 07-26-2025 ambulatory [facility] Facility:[facility] Start: 10-03-2024 End: 10-03-2024 ambulatory [facility] Facility[facility] Start: 09-18-2024 End: 09-18-2024 ambulatory [facility] Facility:[facility] Start: 03-20-2023 Telephone encounter Mitzi muñoz APRN.BRICK UNLOADER TENDER Work Phone: [facility] Comment on above: Patient Question Start: 03-20-2023 End: 03-20-2023 ambulatory Facility:[facility] Start: 03-20-2023 End: 03-20-2023 Patient encounter procedure Mitzi Trinh INTERIOR DECORATOR PAPERHANGING.BRICK UNLOADER TENDER Work Phone: [facility] Comment on above: Sore throat (Primary Dx); Acute otitis media, right Start: 02-11-2023 End: 02-11-2023 Emergency department patient visit CHANELL YOUNG MD Facility:B Start: 01-15-2014 End: 01-15-2014 Telephone encounter Iris Roberts MD Work Phone: Gynecology Procedures Date Procedure Procedure Detail Performing Clinician Start: 07-26-2025 X-ray of cervical spine Aby Whipplegar ASSURANCE AUDITOR-C Work Phone: Start: 07-26-2025 Prostate specific an tigen measurement Aby Whipplegar ASSURANCE AUDITOR-C Work Phone: Comment on above: This test was perfor med using the [employer] tPSA method. Measured values of a patient sample can vary depending on the testing procedure used. PSA values determined on patient samples by different testing procedures cannot be used interchangeably. If there is a change in PSA assays while monitoring therapy, sequential testing should be performed to confirm baseline values. Start: 07-26-2025 Vitamin D, 25-hydrox y measurement Aby Lopez ASSURANCE AUDITOR-C Work Phone: Comment on above: Vitamin D StatusDefi ciency: <20 ng/mL (50nmol/L)Insufficiency: 20-30 ng/mL (50-75 nmol/L)Sufficiency: 30-100 ng/mL (75-250 nmol/L)Toxicity: >100 ng/mL (>250 nmol/L) Start: 03-20-2023 STREP A MOLECULAR (POC) Royer Marsh APRN.CNP Work Phone: Plan of Treatment Date Care Activity Detail Author Start: 07-23-2023 Influenza vaccination INFLUENZA (Sea son Ended) [facility] Start: 11-22-2022 DEPRESSION ASSESSMENT DEPRESSION ASS ESSMENT [facility] Start: 07-23-2021 Influenza vaccination INFLUENZA (Sea son Ended) [facility] Start: 2017 LIPID SCREEN LIPID SCREEN [facility] Start: 2001 Urine microalbumin profile DTAP,TDAP ,TD (1 - Tdap) [facility] Start: 2000 HEPATITIS C SCREENING HEPATITIS C SC REENING [facility] Start: 2000 HIV SCREENING HIV SCREENING [facility] Start: 1994 Adult depression scr eening assessment DEPRESSION SCREENING [facility] Start: 02-22-1983 COVID-19 VACCINE (#1) COVID-19 VACCI NE (#1) [facility] Start: 1982 HEPATITIS B (1 of 3 - 3-dose series) HEPATITIS B (1 of 3 - 3-dose series) [facility] Payers Date Payer Category Payer Self-pay 2024 Unknown [id number] 2023 Unknown [id number] 2023 Unknown [id number] 2012 Unknown [facility] CE PLAN [facility] [id number] 2012-Present PPO [id number] 2012 Unknown [id number] 2012 Unknown [id number] 1982 Unknown [id number] Unknown [id number] Unknown [id number] Unknown [id number] Social History Date Type Detail Facility Start: 12-04-2013 End: 07-05-2024 Tobacco smoking status NVIS Current every day smoker [facility] History of tobacco use Cigarette Smoker C [facility] Work Phone: Start: 12-04-2013 End: 03-20-2023 Cigarettes smoked current (pack per day) - Reported [facility] Start: 12-04-2013 End: 03-20-2023 Tobacco use and exposure Current user [facility] Work Phone: History of tobacco use Snuff User [facility] Work Phone: Start: 12-04-2013 End: 03-20-2023 Alcohol intake Not Asked [facility] Start: 1980 Sex Assigned At Not on file C [facility] Start: 03-20-2023 Tobacco smoking stat us NVIS Ex-smoker [facility] History of tobacco use Current smoker [facility] Start: 03-20-2023 Tobacco Comment [facility] Start: 04-10-2021 Tobacco Use Tobacco Use [facility] Sex Male [facility] Start: 1980 Sex Assigned At Male [facility] Medical Equipment Procedure Code Equipment Code Equipment Origin al Text Equipment Identifier Dates Colonoscopy Tissue marking ink [id number] FDA Start: 07-05-2024 Radiology Diagnostic study note 07-26-2025 Note Date & Type Note Facility 07-26-2025 Radiology Diagnostic study note [facility] Imaging Services [address] [place] [address] Cerv Spine 4 or 5 Views MR#: [id number] Acct: [id number] Name: GIOVANA JACOBS Rep #: [id number] : 1980 M 44 From: Elpidio Anthony MD PCP: JERE Freire Status: REG CLI Study:Cerv Spine 4 or 5 Views Date of Exam: 07/26/25 Exam# [id number] Ordering Dr: Ra karthik Lopez PROCEDURE: CERV SPINE 4 OR 5 VIEWS 07/26/2025 REASON FOR EXAM: BRACHIAL PLEXUS DISORDERS TECHNIQUE: Procedure Code: RADSPC Modality: DX Procedure: CERV SPINE 4 OR 5 VIEWS COMPARISON: None. FINDINGS: There is loss of the normal cervical lordosis. There are no compression fractures or subluxations. There is degenerative disc disease, C3-4 and C4-5 with narrowing of the intervertebral disc spaces. There is degenerative grade 1 retrolisthesis of C4 on C5. There is no instability with flexion and extension. The paravertebral softtissues are normal. RAD/Cerv Spine 4 or 5 Views IMPRESSION: 1. Cervical spasm. 2. Degenerative disc disease C3-4 and C4-5. 3. Spondylolisthesis, C4 on C5. Reading Location: [id number] CC: JERE Lopez ~ Bariatric Physician: Signed [facility] Work Phone: Progress note 03-20-2023 Note Date & Type Note Facility 03-20-2023 Note HNO ID: [id number] Author: Mitzi Trinh APRN.BRICK UNLOADER TENDER Service: ? Author Type: Nurse Practitioner Type: Progress Notes Filed: 03/20/2023 10:15 AM Note Text: Subjective HPI Giovana presents with a 5 days hx of sorethroat on both sides and earache. He states he could not sleep well last night due to the pain in his ears and throat. He has not had a fever, he is eating and drinking but states it is painful to do so. 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 He is a smoker No past medical history on file. No past surgical history on file. ALLERGIES Patient has no known allergies. MEDICATIONS amoxicillin (AMOXIL) 875 mg tablet Take 1 tablet by mouth twice daily for 7 days. HYDROcodone-acetaminophen 5-325 mg per tablet Take 1 tablet by mouth every 6 hours as needed. No family history on file. Social History Tobacco Use Smoking status: Former Packs/day: 0.50 Types: Cigarettes Smokeless tobacco: Current Tobacco comments: Vape Substance Use Topics Drug use: Never Review of Systems HENT: Positive for ear pain and sore throat. All other systems reviewed and are negative. Objective Physical Exam Vitals and nursing note reviewed. Constitutional: General: He is not in acute distress. Appearance: Normal appearance. He is not ill-appearing or toxic-appearing. HENT: Head: Normocephalic and atraumatic. Right Ear: Tympanic membrane, ear canal and external ear normal. There is no impacted cerumen. Ears: Comments: Left TM slightly dull canal reddened Nose: Nose normal. Mouth/Throat: Mouth: Mucous membranes are moist. Pharynx: Oropharynx is clear. Posterior oropharyngeal erythema present. No oropharyngeal exudate. Eyes: Extraocular Movements: Extraocular movements intact. Conjunctiva/sclera: Conjunctivae normal. Pupils: Pupils are equal, round, and reactive to light. Neck: Vascular: No carotid bruit. Cardiovascular: Rate and Rhythm: Normal rate and regular rhythm. Pulses: Normal pulses. Heart sounds: Normal heart sounds. No murmur heard. Pulmonary: Effort: Pulmonary effort is normal. Breath sounds: Normal breath sounds. Abdominal: General: Abdomen is flat. Palpations: Abdomen is soft. Musculoskeletal: General: Normal range of motion. Cervical back: Normal range of motion and neck supple. No rigidity or tenderness. Lymphadenopathy: Cervical: Cervical adenopathy (slight bilateraly) present. Skin: General: Skin is warm and dry. Capillary Refill: Capillary refill takes less than 2 seconds. Neurological: General: No focal deficit present. Mental Status: He is alert and oriented to person, place, and time. ASSESSMENT/PLAN: 1. Sore throat - ICD9: 462, ICD10: J02.9 - suspect viral If worsens return or report to ED Increase fluids - STREP A MOLECULAR (POC) Otitis Amox 875 bid x 7 days Mitzi Trinh APRN.BRICK UNLOADER TENDER [facility] Note 03-20-2023 Telephone Encounter - Brittni Clement - 03/20/2023 11:07 AM EDTTelephone Encounter - Natalia Cochran Pss - 03/20/2023 10:46 AM EDT Note Date & Type Note Facility 03-20-2023 Miscellaneous Notes Formattin g of this note might be different from the original. Patient given results and verbalized understanding of instructions given. Brittni Clement Please call patient, he is unsure of how many prescriptions he should be picking. [facility] [place]. documented in this encounter [facility] History of Present illness Narrative 03-20-2023 Mitzi Trinh APRN.BRICK UNLOADER TENDER - 03/20/2023 10:05 AM EDT Note Date & Type Note Facility 03-20-2023 History of Presen t illness Narrative Subjective HPI Giovana presents with a 5 days hx of sorethroat on both sides and earache. He states he could not sleep well last night due to the pain in his ears and throat. He has not had a fever, he is eating and drinking but states it is painful to do so. 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 He is a smoker No past medical history on file. No past surgical history on file. ALLERGIES Patient has no known allergies. MEDICATIONS amoxicillin (AMOXIL) 875 mg tablet Take 1 tablet by mouth twice daily for 7 days. HYDROcodone-acetaminophen 5-325 mg per tablet Take 1 tablet by mouth every 6 hours as needed. No family history on file. Social History Tobacco Use Smoking status: Former Packs/day: 0.50 Types: Cigarettes Smokeless tobacco: Current Tobacco comments: Vape Substance Use Topics Drug use: Never Review of Systems HENT: Positive for ear pain and sore throat. All other systems reviewed and are negative. Objective Physical Exam Vitals and nursing note reviewed. Constitutional: General: He is not in acute distress. Appearance: Normal appearance. He is not ill-appearing or toxic-appearing. HENT: Head: Normocephalic and atraumatic. Right Ear: Tympanic membrane, ear canal and external ear normal. There is no impacted cerumen. Ears: Comments: Left TM slightly dull canal reddened Nose: Nose normal. Mouth/Throat: Mouth: Mucous membranes are moist. Pharynx: Oropharynx is clear. Posterior oropharyngeal erythema present. No oropharyngeal exudate. Eyes: Extraocular Movements: Extraocular movements intact. Conjunctiva/sclera: Conjunctivae normal. Pupils: Pupils are equal, round, and reactive to light. Neck: Vascular: No carotid bruit. Cardiovascular: Rate and Rhythm: Normal rate and regular rhythm. Pulses: Normal pulses. Heart sounds: Normal heart sounds. No murmur heard. Pulmonary: Effort: Pulmonary effort is normal. Breath sounds: Normal breath sounds. Abdominal: General: Abdomen is flat. Palpations: Abdomen is soft. Musculoskeletal: General: Normal range of motion. Cervical back: Normal range of motion and neck supple. No rigidity or tenderness. Lymphadenopathy: Cervical: Cervical adenopathy (slight bilateraly) present. Skin: General: Skin is warm and dry. Capillary Refill: Capillary refill takes less than 2 seconds. Neurological: General: No focal deficit present. Mental Status: He is alert and oriented to person, place, and time. ASSESSMENT/PLAN: 1. Sore throat - ICD9: 462, ICD10: J02.9 - suspect viral If worsens return or report to ED Increase fluids - STREP A MOLECULAR (POC) Otitis Amox 875 bid x 7 days Mitzi Trinh APRN.AGNES documented in this encounter [facility] Note 01-15-2014 Telephone Encounter - Hannah Guerrero) - 01/15/2014 4:54 PM ESTTelephone Encounter - Myrna Self - 01/15/2014 4:41 PM EST Note Date & Type Note Facility 01-15-2014 Miscellaneous Notes Results for GIOVANA JACOBS ( ) as of 01/15/2014 16:53 01/08/2014 15:30 Semen Volume 3.8 Semen Comment 1 PARTNER: SHIKHA JACOBS, : [birth year]. % Motile Sperm 56 Concentration 62.00 Total Count Sperm 235.60 Total Motile Sperm 131.94 Semen Comment 2 MANUAL COUNT & MOTILITY USED. Abnormal Head 98 Undiff Rnd Cell Rout Semen Anl 1.40 (H) Slide No. Semen Rout [id number] Endtz 0.0 Forward Progression 2... Sperm Diff, Roz 2 (L) Called pt with the result as above and explained his essentially nl results. is Beverley [id number]. Note to Dr. Roberts in 's chart. . Note in both charts.Any additional? [phone]- Patient calling for SA. Called and left a message that pt/ needs to call for his results (HIPAA) and then he can give us permission to share them with her. [phone]-patient calling for semen analysis results. documented in this encounter [facility] Evaluation note Note Date & Type Note Facility Evaluation note Diagnosis Sore throat- Primary Acute pharyngitis Acute otitis media, right Unspecified otitis media documented in this encounter [facility] Evaluation note Note Date & Type Note Facility Evaluation note No assessment information availa lucy [facility] Work Phone: Reason for referral (narrative) Note Date & Type Note Facility Reason for referral (narrative) No reason for referral information available [facility] Work Phone: Summary Purpose Family History No Family History Records FoundNo Family History Records FoundNo Family History Records Found Advance Directives No Advanced Directives Records FoundNo Advanced Directives Records FoundNo Advanced Directives Records Found Additional Source Comments Source Comments (unrecognize d section and content) In the event this informatio n is protected by the Federal Confidentiality of Alcohol and Drug Abuse Patient Records regulations: The Federal rules restrict any use of the information to criminally investigate or prosecute any alcohol or drug abuse patient.[facility] the event this information is protected by the Federal Confidentiality of Alcohol and Drug Abuse Patient Records regulations: The Federal rules restrict any use of the information to criminally investigate or prosecute any alcohol or drug abuse patient.[facility] Hospital[facility] the event this information is protected by the Federal Confidentiality of Alcohol and Drug Abuse Patient Records regulations: The Federal rules restrict any use of the information to criminally investigate or prosecute any alcohol or drug abuse patient.[facility] (unrecognized sect ion and content) No Status Records FoundNo Status Records FoundNo Status Records Found INFORMATION SOURCE (unrecogn ized section and content) DATE CREATED AUTHOR 02/23/[address] [facility] ([place]) DATE CREATED AUTHOR AUTHOR'S ORGANIZ ATION 03/20/2023 [facility] DATE CREATED AUTHOR AUTHOR'S ORGANIZ ATION 08/12/2025 [facility] Reason for Visit (unrecogniz ed section and content) Reason Comments Pain, Throat Pt reported throat, ear pain rated 9, x4 days. Reason Comments Patient Question Care Teams (unrecognized sec tion and content) Team Status: Active Member Role/Relationship Status Dates Kwadwo Puckett Primary care physician Active JERE Freire Primary care physician Active Team Status: Inactive Member Role/Relationship Status Dates JERE Freire Primary care physician Active Start: July 26, 2025 End: July 26, 2025 JERE Freire Attending physician Active S tart: July 26, 2025 End: July 26, 2025 JERE Freire Referring Provider Active St art: July 26, 2025 End: July 26, 2025 Goals (unrecognized section and content) Goals may be documented in a n alternate section FOR RECORDS PERTAINING TO PATIENTS WHO ARE OR HAVE BEEN ENROLLED IN A CHEMICAL DEPENDENCY/SUBSTANCEABUSE PROGRAM, SOME INFORMATION MAY BE OMITTED. This clinical summary was aggregated from multiple sources. Caution should be exercised in using it in the provision of clinical care. This summary normalizes information from multiple sources, and as a consequence, information in this document may materially change the coding, format and clinical context of patient data. In addition, data may be omitted in some cases. CLINICAL DECISIONS SHOULD BE BASED ON THE PRIMARY CLINICAL RECORDS. [facility]. provides no warranty or guarantee of the accuracy or completeness of information in this document.
--- NOTE | 2025-11-13 13:47 | NEURO ---
NCS and/or EMG Patient Report Ordering Doctor: Miriam Umana DATE OF SERVICE: 11/13/25 Clinical Summary: 45 year old male patient with symptoms of numbness and discomfort in the hands/fingers bilaterally. Nerve Conduction Studies Summary: Nerve conduction studies were performed in the bilateral upper extremities. The left median-D2 SNAP distal latency was prolonged. Left median-dumont response amplitude was reduced. Needle Examination Summary: Needle examination performed on select muscles of the bilateral upper extremities was normal. Impression: This is an abnormal study. There is electrodiagnostic evidence of a mild, left median mononeuropathy at the wrist (carpal tunnel syndrome), with sensory fiber demyelination There is no electrodiagnostic evidence of a right median mononeuropathy (carpal tunnel syndrome). There is no electrodiagnostic evidence of a right/left ulnar neuropathy or cervical radiculopathy. Multi Select Codes Neurology Neurology Interp Codes: 51009-19 Musc test done w/n test comp (interp) (2) and 88901-76 Nrv cndj test 13/> studies (interp)
== END | disposition home or self-care (01) ==
LOC: PSN 12:24
PROVIDERS: PCP Nurse Practitioner Family; Referring Provider Student in an Organized Health Care Education/Training Program; Visit Provider Student in an Organized Health Care Education/Training Program
DX: G56.03 Carpal tunnel syndrome, bilateral upper limbs (principal)
CPT/HCPCS: 95886; 95913

== ENCOUNTER → 2025-11-14 | Outpatient (CLI) | payer BC, SELFPAY ==
--- OUTSIDE RECORDS SUMMARY | 2025-11-14 07:07 | XMS RPT_ITS | CCD ---
Author Organization [facility] Care Team Providers Care Advertising Manager Name Role Phone Kwadwo Puckett Primary [...] Unavailable John, Aby Primary Care Unavailable John EVP GENERAL COUNSEL-C, bAy Primary Care Physician John EVP GENERAL COUNSEL-C, Aby Attending Physician John EVP GENERAL COUNSEL-C, Aby Referring Provider Medications Current Medications Medication Drug Class(es) Dates [...] Freeon 08-01-2025 TESTOSTER,FREE 9.91 ng/dL Normal 5.00-21.00 [facility] Comment on above: Order Comment: N Performed By: #### L 501.6710, L503.6550, L500.4050, L501.9520, L500.4100, L509.6001, L506.1001, L506.0400, L3100.5310, L503.0106, L503.6150, L101.9900, L501.9910, L100.0100 ####[facility] [address] [place], [place], [phone](360) TESTOSTER,TOTAL 390 ng/dL Normal 264-916 [facility] Comment on above: Order Comment: N Result Comment: Adul t male reference interval is based on a population of healthy nonobese males (BMI <30) between 19 and 39 years old. griffin Chandler.al. JCEM 2017,102;2377-9314. PMID: [id number]. Performed By: #### L 501.6710, L503.6550, L500.4050, L501.9520, L500.4100, L509.6001, L506.1001, L506.0400, L3100.5310, L503.0106, L503.6150, L101.9900, L501.9910, L100.0100 ####[facility] [address] [place], [place], [id number] TESTOSTERONE,%F 2.54 Normal 1.50-4.20 [facility] Comment on above: Order Comment: N Result Comment: Perf ormed at: [facility] [address] [id number] Shell Grader: Aki Peoples PhD, Phone: [phone] Performed at: [facility] [address] [id number] Shell Grader: Darien Logan MD, Phone: [phone] Performed By: #### L 501.6710, L503.6550, L500.4050, L501.9520, L500.4100, L509.6001, L506.1001, L506.0400, L3100.5310, L503.0106, L503.6150, L101.9900, L501.9910, L100.0100 ####[facility] [address] [place], [address] Absolute lymphocyte countOrd ered By: Alma John on 07-26-2025 Lymphocytes Auto (Unsp spec) [#/Vol] 1.26 10*3/uL 0.83-4.51 [facility] Absolute neutrophil countOrd ered By: [facility] Neutrophils (Bld) [#/Vol] 2.2 10*3/uL 2.0-7.7 [facility] Anion gap in Serum or Plasma Ordered By: [facility] on 07-26-2025 Anion gap [Moles/Vol] 14 mmol/L 5-15 [facility] Automated lymphocyte count a s percentage of total leukocytesOrdered By: [facility] on 07-26-2025 Lymphocytes/100 WBC Auto (Unsp spec) 31.7 % 19-41 [facility] BUN/creatinine ratioOrdered By: [facility] on 07-26-2025 Urea nitrogen/Creatinine [Mass ratio] 9.6 mg/mg Low 10-20 [facility] Basophil percentageOrdered B y: [facility] on 07-26-2025 Basophils/100 WBC (Bld) 0.8 % 0-1 [facility] Bilirubin, totalOrdered By: [facility] on 07-26-2025 Bilirubin [Mass/Vol] 0.35 mg/dL 0.00-1.30 [facility] CBC W/Diff, Automatedon Absolute Lymph 1.26 X10 3/uL Normal 0.83-4.51 [facility] Comment on above: Performed By: #### L 501.6710, L503.6550, L500.4050, L501.9520, L500.4100, L509.6001, L506.1001, L506.0400, L3100.5310, L503.0106, L503.6150, L101.9900, L501.9910, L100.0100 #### [facility] [address] [place], [address] Absolute Neut 2.2 X10 3/uL Normal 2.0-7.7 [facility] Comment on above: Performed By: #### L 501.6710, L503.6550, L500.4050, L501.9520, L500.4100, L509.6001, L506.1001, L506.0400, L3100.5310, L503.0106, L503.6150, L101.9900, L501.9910, L100.0100 #### [facility] [address] [place], [address] Basophils/100 WBC (Bld) 0.8 % Normal 0-1 [facility] Comment on above: Performed By: #### L 501.6710, L503.6550, L500.4050, L501.9520, L500.4100, L509.6001, L506.1001, L506.0400, L3100.5310, L503.0106, L503.6150, L101.9900, L501.9910, L100.0100 #### [facility] [address] [place], [address] Eosinophils/100 WBC (Bld) 2.3 % Normal 0-5 [facility] Comment on above: Performed By: #### L 501.6710, L503.6550, L500.4050, L501.9520, L500.4100, L509.6001, L506.1001, L506.0400, L3100.5310, L503.0106, L503.6150, L101.9900, L501.9910, L100.0100 #### [facility] [address] [place], [address] Erythrocyte distribution width (RBC) [Ratio] 11.3 % Low 11.6-14.6 [facility] Comment on above: Performed By: #### L 501.6710, L503.6550, L500.4050, L501.9520, L500.4100, L509.6001, L506.1001, L506.0400, L3100.5310, L503.0106, L503.6150, L101.9900, L501.9910, L100.0100 #### [facility] [address] [place], [address] Hematocrit (Bld) [Volume fraction] 46.7 % Normal 40-54 [facility] Comment on above: Performed By: #### L 501.6710, L503.6550, L500.4050, L501.9520, L500.4100, L509.6001, L506.1001, L506.0400, L3100.5310, L503.0106, L503.6150, L101.9900, L501.9910, L100.0100 #### [facility] [address] [place], [address] Hemoglobin (Bld) [Mass/Vol] 16.1 g/dL Normal 13.0-16.5 [facility] Comment on above: Performed By: #### L 501.6710, L503.6550, L500.4050, L501.9520, L500.4100, L509.6001, L506.1001, L506.0400, L3100.5310, L503.0106, L503.6150, L101.9900, L501.9910, L100.0100 #### [facility] [address] [place], [address] IG% 0.300 Normal 0.0-0.9 [facility] Comment on above: Result Comment: IG% - Immature Granulocytes (promyelocytes, myelocytes and metamyelocytes) > 1% indicates that a LEFT SHIFT is Present. Performed By: #### L 501.6710, L503.6550, L500.4050, L501.9520, L500.4100, L509.6001, L506.1001, L506.0400, L3100.5310, L503.0106, L503.6150, L101.9900, L501.9910, L100.0100 #### [facility] [address] [place], [address] Lymphocytes/100 WBC (Bld) 31.7 % Normal 19-41 [facility] Comment on above: Performed By: #### L 501.6710, L503.6550, L500.4050, L501.9520, L500.4100, L509.6001, L506.1001, L506.0400, L3100.5310, L503.0106, L503.6150, L101.9900, L501.9910, L100.0100 #### [facility] [address] [place], [address] MCH (RBC) [Entitic mass] 31.1 pg Normal 27.0-32.0 [facility] Comment on above: Performed By: #### L 501.6710, L503.6550, L500.4050, L501.9520, L500.4100, L509.6001, L506.1001, L506.0400, L3100.5310, L503.0106, L503.6150, L101.9900, L501.9910, L100.0100 #### [facility] [address] [place], [address] MCHC (RBC) [Mass/Vol] 34.5 g/dL Normal 32-36 [facility] Comment on above: Performed By: #### L 501.6710, L503.6550, L500.4050, L501.9520, L500.4100, L509.6001, L506.1001, L506.0400, L3100.5310, L503.0106, L503.6150, L101.9900, L501.9910, L100.0100 #### [facility] [address] [place], [address] MCV (RBC) [Entitic vol] 90.3 fL Normal 80-94 [facility] Comment on above: Performed By: #### L 501.6710, L503.6550, L500.4050, L501.9520, L500.4100, L509.6001, L506.1001, L506.0400, L3100.5310, L503.0106, L503.6150, L101.9900, L501.9910, L100.0100 #### [facility] [address] [place], [address] Monocytes/100 WBC (Bld) 10.6 % High 0-10 [facility] Comment on above: Performed By: #### L 501.6710, L503.6550, L500.4050, L501.9520, L500.4100, L509.6001, L506.1001, L506.0400, L3100.5310, L503.0106, L503.6150, L101.9900, L501.9910, L100.0100 #### [facility] [address] [place], [address] Neutrophils/100 WBC (Bld) 54.3 % Normal 47-70 [facility] Comment on above: Performed By: #### L 501.6710, L503.6550, L500.4050, L501.9520, L500.4100, L509.6001, L506.1001, L506.0400, L3100.5310, L503.0106, L503.6150, L101.9900, L501.9910, L100.0100 #### [facility] [address] [place], [address] Nucleated RBC (Bld) [#/Vol] 0 10*3/uL Normal 0-5 [facility] Comment on above: Performed By: #### L 501.6710, L503.6550, L500.4050, L501.9520, L500.4100, L509.6001, L506.1001, L506.0400, L3100.5310, L503.0106, L503.6150, L101.9900, L501.9910, L100.0100 #### [facility] [address] [place], [address] Platelet mean volume (Bld) [Entitic vol] 11.7 fL Normal 6.2-12.0 [facility] Comment on above: Performed By: #### L 501.6710, L503.6550, L500.4050, L501.9520, L500.4100, L509.6001, L506.1001, L506.0400, L3100.5310, L503.0106, L503.6150, L101.9900, L501.9910, L100.0100 #### [facility] [address] [place], [address] Platelets (Bld) [#/Vol] 234 10*3/uL Normal 150-450 [facility] Comment on above: Performed By: #### L 501.6710, L503.6550, L500.4050, L501.9520, L500.4100, L509.6001, L506.1001, L506.0400, L3100.5310, L503.0106, L503.6150, L101.9900, L501.9910, L100.0100 #### [facility] [address] [place], [address] RBC (Bld) [#/Vol] 5.17 10*6/uL Normal 4.6-6.2 [facility] Comment on above: Performed By: #### L 501.6710, L503.6550, L500.4050, L501.9520, L500.4100, L509.6001, L506.1001, L506.0400, L3100.5310, L503.0106, L503.6150, L101.9900, L501.9910, L100.0100 #### [facility] [address] [place], [place], [phone] (756) RDW SD 37.3 fl Normal 35.1-43.9 [facility] Comment on above: Performed By: #### L 501.6710, L503.6550, L500.4050, L501.9520, L500.4100, L509.6001, L506.1001, L506.0400, L3100.5310, L503.0106, L503.6150, L101.9900, L501.9910, L100.0100 #### [facility] [address] [place], [place], [address] WBC (Bld) [#/Vol] 4.0 10*3/uL Low 4.4-11.0 [facility] Comment on above: Performed By: #### L 501.6710, L503.6550, L500.4050, L501.9520, L500.4100, L509.6001, L506.1001, L506.0400, L3100.5310, L503.0106, L503.6150, L101.9900, L501.9910, L100.0100 #### [facility] [address] [place], [place], [phone] (419) CRPon 07-26-2025 C-REACTIVE PROT < 3.00 Normal 0.0-3.0 [facility] Comment on above: Performed By: #### L 501.6710, L503.6550, L500.4050, L501.9520, L500.4100, L509.6001, L506.1001, L506.0400, L3100.5310, L503.0106, L503.6150, L101.9900, L501.9910, L100.0100 #### [facility] [address] [place], [address] Calculated very low density lipoprotein (VLDL) cholesterol measurementOrdered By: Aby Lopez on 07-26-2025 Calculated very low density lipoprotein (VLDL) cholesterol measurement 20 mg/dL 5-40 [facility] Carbon dioxide, total [Moles /volume] in Central venous bloodOrdered By: Aby Lopez on 07-26-2025 CO2 [Moles/Vol] 22.2 mmol/L 21.0-32.0 [facility] Cerv Spine 4 or 5 Viewson Cerv Spine 4 or 5 Views [facility] [address] [place] [address] Cerv Spine 4 or 5 Views MR#: [id number] Acct: [id number] Name: GIOVANA JACOBS Rep #: [id number] : 1980 M 44 From: Samson Anthony MD PCP: JERE Freire Status: REG CLI Study: Cerv Spine 4 or 5 Views Date of Exam: 07/26/25 Exam# [id number] Ordering Dr: Aby Lopez PROCEDURE: CERV SPINE [...] 3. Spondylolisthesis, C4 on C5. Reading Location: [id number] CC: JERE Lopez Senior Ui Developer: Signed Normal [facility] Chloride assayOrdered By: Ra karthik Lopez on 07-26-2025 Chloride [Moles/Vol] 103 mmol/L 98-108 [facility] Comprehensive Metabolic Prof ilon 07-26-2025 Albumin [Mass/Vol] 4.7 g/dL Normal 3.5-5.0 [facility] Comment on above: Performed By: #### L 501.6710, L503.6550, L500.4050, L501.9520, L500.4100, L509.6001, L506.1001, L506.0400, L3100.5310, L503.0106, L503.6150, L101.9900, L501.9910, L100.0100 #### [facility] [address] [facility] [place], [place], [id number] Albumin/Globulin [Mass ratio] 1.8 {ratio} Normal 0.9-2.4 [facility] Comment on above: Performed By: #### L 501.6710, L503.6550, L500.4050, L501.9520, L500.4100, L509.6001, L506.1001, L506.0400, L3100.5310, L503.0106, L503.6150, L101.9900, L501.9910, L100.0100 #### [facility] [address] [facility] [place], [place], [id number] ALK PHOS 74 U/L Normal 40-129 [facility] Comment on above: Performed By: #### L 501.6710, L503.6550, L500.4050, L501.9520, L500.4100, L509.6001, L506.1001, L506.0400, L3100.5310, L503.0106, L503.6150, L101.9900, L501.9910, L100.0100 #### [facility] [address] [place], [place], [id number] ALT [Catalytic activity/Vol] 34 U/L Normal <=46 [facility] Comment on above: Performed By: #### L 501.6710, L503.6550, L500.4050, L501.9520, L500.4100, L509.6001, L506.1001, L506.0400, L3100.5310, L503.0106, L503.6150, L101.9900, L501.9910, L100.0100 #### [facility] [address] [place], [place], [address] AST [Catalytic activity/Vol] 25 U/L Normal <=37 [facility] Comment on above: Performed By: #### L 501.6710, L503.6550, L500.4050, L501.9520, L500.4100, L509.6001, L506.1001, L506.0400, L3100.5310, L503.0106, L503.6150, L101.9900, L501.9910, L100.0100 #### [facility] [address] [place], [place], [address] Bilirubin [Mass/Vol] 0.35 mg/dL Normal 0.00-1.30 [facility] Comment on above: Performed By: #### L 501.6710, L503.6550, L500.4050, L501.9520, L500.4100, L509.6001, L506.1001, L506.0400, L3100.5310, L503.0106, L503.6150, L101.9900, L501.9910, L100.0100 #### [facility] [address] [place], [place], [id number] BUN/CRE 9.6 RATIO Low 10-20 [facility] Comment on above: Performed By: #### L 501.6710, L503.6550, L500.4050, L501.9520, L500.4100, L509.6001, L506.1001, L506.0400, L3100.5310, L503.0106, L503.6150, L101.9900, L501.9910, L100.0100 #### [facility] [address] [place], [address] Calcium [Mass/Vol] 9.3 mg/dL Normal 7.6-11.0 [facility] Comment on above: Performed By: #### L 501.6710, L503.6550, L500.4050, L501.9520, L500.4100, L509.6001, L506.1001, L506.0400, L3100.5310, L503.0106, L503.6150, L101.9900, L501.9910, L100.0100 #### [facility] [address] [place], [place], [id number] (256) Chloride [Moles/Vol] 103 mmol/L Normal 98-108 [facility] Comment on above: Performed By: #### L 501.6710, L503.6550, L500.4050, L501.9520, L500.4100, L509.6001, L506.1001, L506.0400, L3100.5310, L503.0106, L503.6150, L101.9900, L501.9910, L100.0100 #### [facility] [address] [place], [address] CO2 [Moles/Vol] 22.2 mmol/L Normal 21.0-32.0 [facility] Comment on above: Performed By: #### L 501.6710, L503.6550, L500.4050, L501.9520, L500.4100, L509.6001, L506.1001, L506.0400, L3100.5310, L503.0106, L503.6150, L101.9900, L501.9910, L100.0100 #### [facility] [address] [place], [address] Creatinine [Mass/Vol] 1.12 mg/dL Normal 0.70-1.20 [facility] Comment on above: Performed By: #### L 501.6710, L503.6550, L500.4050, L501.9520, L500.4100, L509.6001, L506.1001, L506.0400, L3100.5310, L503.0106, L503.6150, L101.9900, L501.9910, L100.0100 #### [facility] [address] [place], [address] GAP 14 Normal 5-15 [facility] Comment on above: Performed By: #### L 501.6710, L503.6550, L500.4050, L501.9520, L500.4100, L509.6001, L506.1001, L506.0400, L3100.5310, L503.0106, L503.6150, L101.9900, L501.9910, L100.0100 #### [facility] [address] [place], [address] GFR/1.73 sq M.predicted among non-blacks MDRD (S/P/Bld) [Vol rate/Area] 84 mL/min/{1.73_m2} Normal >60 [facility] Comment on above: Result Comment: mL/m in/1.73m2 CKD-EPI Creatinine Equation (2020) Performed By: #### L 501.6710, L503.6550, L500.4050, L501.9520, L500.4100, L509.6001, L506.1001, L506.0400, L3100.5310, L503.0106, L503.6150, L101.9900, L501.9910, L100.0100 #### [facility] [address] [place], [address] Globulin (S) [Mass/Vol] 2.6 g/dL Normal 2.2-4.2 [facility] Comment on above: Performed By: #### L 501.6710, L503.6550, L500.4050, L501.9520, L500.4100, L509.6001, L506.1001, L506.0400, L3100.5310, L503.0106, L503.6150, L101.9900, L501.9910, L100.0100 #### [facility] [address] [place], [address] Glucose [Mass/Vol] 89 mg/dL Normal 70-99 [facility] Comment on above: Performed By: #### L 501.6710, L503.6550, L500.4050, L501.9520, L500.4100, L509.6001, L506.1001, L506.0400, L3100.5310, L503.0106, L503.6150, L101.9900, L501.9910, L100.0100 #### [facility] [address] [place], [address] Potassium [Moles/Vol] 4.2 mmol/L Normal 3.3-5.1 [facility] Comment on above: Performed By: #### L 501.6710, L503.6550, L500.4050, L501.9520, L500.4100, L509.6001, L506.1001, L506.0400, L3100.5310, L503.0106, L503.6150, L101.9900, L501.9910, L100.0100 #### [facility] [address] [place], [address] Sodium [Moles/Vol] 140 mmol/L Normal 133-145 [facility] Comment on above: Performed By: #### L 501.6710, L503.6550, L500.4050, L501.9520, L500.4100, L509.6001, L506.1001, L506.0400, L3100.5310, L503.0106, L503.6150, L101.9900, L501.9910, L100.0100 #### [facility] [address] [place], [place], [phone] (146) T PROT 7.3 g/dL Normal 5.9-8.4 [facility] Comment on above: Performed By: #### L 501.6710, L503.6550, L500.4050, L501.9520, L500.4100, L509.6001, L506.1001, L506.0400, L3100.5310, L503.0106, L503.6150, L101.9900, L501.9910, L100.0100 #### [facility] [address] [place], [place], [id number] Urea nitrogen [Mass/Vol] 11 mg/dL Normal 4-19 [facility] Comment on above: Performed By: #### L 501.6710, L503.6550, L500.4050, L501.9520, L500.4100, L509.6001, L506.1001, L506.0400, L3100.5310, L503.0106, L503.6150, L101.9900, L501.9910, L100.0100 #### [facility] [address] [place], [place], [id number] Eosinophil percentageOrdered By: Aby Lopez on 07-26-2025 Eosinophils/100 WBC (Bld) 2.3 % 0-5 [facility] Erythrocyte Sed Rateon 07-26 SED RATE 3 mm/hr Normal 0-20 [facility] Comment on above: Performed By: #### L 501.6710, L503.6550, L500.4050, L501.9520, L500.4100, L509.6001, L506.1001, L506.0400, L3100.5310, L503.0106, L503.6150, L101.9900, L501.9910, L100.0100 #### [facility] [address] [place], [address] Erythrocyte distribution wid th ratioOrdered By: Aby Lopez on 07-26-2025 Erythrocyte distribution width (RBC) [Ratio] 11.3 % Low 11.6-14.6 [facility] Erythrocyte distribution wid th standard deviationOrdered By: Abyrhonda Lopez on 07-26-2025 Erythrocyte distribution width (RBC) [Ratio] 37.3 fl 35.1-43.9 [facility] Erythrocyte sedimentation ra teOrdered By: Abyrhonda Lopez on 07-26-2025 ESR (Bld) [Velocity] 3 mm/h 0-20 [facility] Ferritinon 07-26-2025 Ferritin [Mass/Vol] 259 ng/mL Normal 37-417 [facility] Comment on above: Performed By: #### L 501.6710, L503.6550, L500.4050, L501.9520, L500.4100, L509.6001, L506.1001, L506.0400, L3100.5310, L503.0106, L503.6150, L101.9900, L501.9910, L100.0100 ####[facility] [address] [place], [place], [id number] Free testosterone percentage Ordered By: Aby Lopez on 07-26-2025 Testosterone Free/Testosterone.total [Mass fraction] 2.54 % 1.50-4.20 [facility] Comment on above: Performed at: [facility] [address] [id number] Director: Aki Peoples PhD, Phone: [phone] at: [facility] [address] [id number] Director: Darien Logan MD, Phone: [phone] Glomerular filtration rate ( GFR) estimation/1.73 sq m using serum, plasma, or whole bOrdered By: Aby Lopez on 07-26-2025 GFR/1.73 sq M.predicted among non-blacks MDRD (S/P/Bld) [Vol rate/Area] 84 mL/min/{1.73_m2} >60 [facility] Comment on above: mL/min/1.73m2 CKD-EP I Creatinine Equation (2020) Hematocrit Auto (Bld) [Volum e fraction]Ordered By: Aby Lopez on 07-26-2025 Hematocrit (Bld) [Volume fraction] 46.7 % 40-54 [facility] Hemoglobin measurementOrdere d By: Aby Lopez on 07-26-2025 Hemoglobin (Bld) [Mass/Vol] 16.1 g/dL 13.0-16.5 [facility] Immature granulocytes/100 WB C Auto (Bld)Ordered By: Aby Lopez on 07-26-2025 Immature granulocytes/100 WBC (Bld) 0.300 % 0.0-0.9 [facility] Comment on above: IG% - Immature Granu locytes (promyelocytes, myelocytes and metamyelocytes) > 1% indicates that a LEFT SHIFT is Present. Ironon 07-26-2025 Iron [Mass/Vol] 76 ug/dL Normal 65-175 [facility] Comment on above: Performed By: #### L 501.6710, L503.6550, L500.4050, L501.9520, L500.4100, L509.6001, L506.1001, L506.0400, L3100.5310, L503.0106, L503.6150, L101.9900, L501.9910, L100.0100 ####[facility] [address] [place], [place], [id number] Iron measurement (mass/mass) Ordered By: Aby Lopez on 07-26-2025 Iron (Unsp spec) [Mass/Mass] 76 ug/dL 65-175 [facility] L509.6001on 07-26-2025 CORTISOL 19.40 ug/dL High 6.02-18.40 [facility] Comment on above: Performed By: #### L 501.6710, L503.6550, L500.4050, L501.9520, L500.4100, L509.6001, L506.1001, L506.0400, L3100.5310, L503.0106, L503.6150, L101.9900, L501.9910, L100.0100 ####[facility] [address] [place], [place], [id number] LDL calc ser/plasOrdered By: Aby Lopez on 07-26-2025 Cholesterol in LDL [Mass/Vol] 136 mg/dL [facility] Comment on above: Octxjkzweb=018-004 m g/dL & Higher Ldxg=914 mg/dL or greaterFriedwald Equation for LDL-C Laboratory - Chemistry and C hemistry - challengeOrdered By: Aby Lopez on 07-26-2025 AST [Catalytic activity/Vol] 25 U/L <38 [facility] Lipid Profileon 07-26-2025 CHOL:HDL 3.39 Normal [facility] Comment on above: Performed By: #### L 501.6710, L503.6550, L500.4050, L501.9520, L500.4100, L509.6001, L506.1001, L506.0400, L3100.5310, L503.0106, L503.6150, L101.9900, L501.9910, L100.0100 #### [facility] [address] [place], [place], [id number] Cholesterol [Mass/Vol] 221 mg/dL High <=200 [facility] Comment on above: Result Comment: Chol esterol level, Desirable <200 mg/dL Borderline high cholesterol 200-239 mg/dL High cholesterol >=240 mg/dL Recommendations of the NCEP Adult Treatment Panel for the following risk-cutoff thresholds for the [place] population. Performed By: #### L 501.6710, L503.6550, L500.4050, L501.9520, L500.4100, L509.6001, L506.1001, L506.0400, L3100.5310, L503.0106, L503.6150, L101.9900, L501.9910, L100.0100 #### [facility] [address] [place], [address] Cholesterol in HDL [Mass/Vol] 65 mg/dL Normal [facility] Comment on above: Result Comment: Sarah onal [...] L3100.5310, L503.0106, L503.6150, L101.9900, L501.9910, L100.0100 #### [facility] [address] [facility] [place], [address] Cholesterol in LDL [Mass/Vol] 136 mg/dL Normal [facility] Comment on above: Result Comment: Bord dhrcem=199-628 mg/dL Higher Qbqv=177 mg/dL or greater Friedwald Equation for LDL-C Performed By: #### L 501.6710, L503.6550, L500.4050, L501.9520, L500.4100, L509.6001, L506.1001, L506.0400, L3100.5310, L503.0106, L503.6150, L101.9900, L501.9910, L100.0100 #### [facility] [address] [place], [address] Cholesterol in VLDL [Mass/Vol] 20 mg/dL Normal 5-40 [facility] Comment on above: Performed By: #### L 501.6710, L503.6550, L500.4050, L501.9520, L500.4100, L509.6001, L506.1001, L506.0400, L3100.5310, L503.0106, L503.6150, L101.9900, L501.9910, L100.0100 #### [facility] [address] [place], [address] Triglyceride [Mass/Vol] 101 mg/dL Normal [facility] Comment on above: Result Comment: The drugs N-Acetylcysteine and Metamizole may falsely depress this assay. Normal range: <150 mg/dL Borderline High: 150-199 mg/dL High: 200-499 mg/dL Very High: >500 mg/dL Performed By: #### L 501.6710, L503.6550, L500.4050, L501.9520, L500.4100, L509.6001, L506.1001, L506.0400, L3100.5310, L503.0106, L503.6150, L101.9900, L501.9910, L100.0100 #### [facility] [address] [place], [address] MCV (mean corpuscular volume ) determinationOrdered By: Aby Lopez on 07-26-2025 MCV (RBC) [Entitic vol] 90.3 fL 80-94 [facility] Mean corpuscular hemoglobin (MCH) determinationOrdered By: Aby Lopez on 07-26-2025 MCH (RBC) [Entitic mass] 31.1 pg 27.0-32.0 [facility] Mean corpuscular hemoglobin concentration (MCHC) determinationOrdered By: Aby Lopez on 07-26-2025 MCHC (RBC) [Mass/Vol] 34.5 g/dL 32-36 [facility] Mean platelet volume determi nationOrdered By: Aby Lopez on 07-26-2025 Platelet mean volume (Bld) [Entitic vol] 11.7 fL 6.2-12.0 [facility] Monocyte percentageOrdered B y: Aby Lopez on 07-26-2025 Monocytes/100 WBC (Bld) 10.6 % High 0-10 [facility] Neutrophil percentageOrdered By: Aby Lopez on 07-26-2025 Neutrophils/100 WBC (Bld) 54.3 % 47-70 [facility] Nucleated red blood cell per centageOrdered By: Aby Lopez on 07-26-2025 Nucleated RBC/100 WBC (Bld) [Ratio] 0 % 0-5 [facility] PSA,Total - Annual Screenon 07-26-2025 PSA,TOT SCREEN 0.44 ng/mL Normal 0.02-4.00 [facility] Comment on above: Result Comment: This test [...] L3100.5310, L503.0106, L503.6150, L101.9900, L501.9910, L100.0100 #### [facility] [address] [place], [place], [id number] Platelet countOrdered By: Ra karthik Lopez on 07-26-2025 Platelets (Bld) [#/Vol] 234 10*3/uL 150-450 [facility] Potassium measurement (mass/ volume)Ordered By: Aby Lopez on 07-26-2025 Potassium (Unsp spec) [Mass/Vol] 4.2 mmol/L 3.3-5.1 [facility] RBC Auto (Bld) [#/Vol]Ordere d By: Aby Lopez on 07-26-2025 RBC (Bld) [#/Vol] 5.17 10*6/uL 4.6-6.2 [facility] Screening total cholesterol/ high density lipoprotein (HDL) cholesterol ratioOrdered By: Aby Lopez on 07-26-2025 Cholesterol.total/Choles terol in HDL [Mass ratio] 3.39 {ratio} [facility] Serum creatinine measurement (mass/volume)Ordered By: Aby Lopez on 07-26-2025 Creatinine [Mass/Vol] 1.12 mg/dL 0.70-1.20 [facility] Serum globulin measurementOr dered By: Aby Lopez on 07-26-2025 Globulin (S) [Mass/Vol] 2.6 g/dL 2.2-4.2 [facility] Serum glucose measurement (m ass/volume)Ordered By: Aby Lopez on 07-26-2025 Glucose [Mass/Vol] 89 mg/dL 70-99 [facility] Serum or plasma C reactive p rotein measurement (mass/volume)Ordered By: Aby Lopez on 07-26-2025 CRP [Mass/Vol] mg/L 0.0-3.0 [facility] Serum or plasma alanine mathis otransferase (ALT) measurementOrdered By: Aby Lopez on 07-26-2025 ALT [Catalytic activity/Vol] 34 U/L <47 [facility] Serum or plasma albumin timothy urement (mass/volume)Ordered By: Aby Lopez on 07-26-2025 Albumin [Mass/Vol] 4.7 g/dL 3.5-5.0 [facility] Serum or plasma albumin/glob ulin mass ratioOrdered By: Aby Lopez on 07-26-2025 Albumin/Globulin [Mass ratio] 1.8 {ratio} 0.9-2.4 [facility] Serum or plasma alkaline carmelina sphatase measurementOrdered By: Aby Lopez on 07-26-2025 ALP [Catalytic activity/Vol] 74 U/L 40-129 [facility] Serum or plasma calcium timothy urement (mass/volume)Ordered By: Aby Lopez on 07-26-2025 Calcium [Mass/Vol] 9.3 mg/dL 7.6-11.0 [facility] Serum or plasma cholesterol in HDL measurement (mass/volume)Ordered By: Aby Lopez on 07-26-2025 Cholesterol in HDL [Mass/Vol] 65 mg/dL >40 [facility] Comment on above: National Cholesterol Education Program (NCEP) guidelines:<40 mg/dL: Low HDL-cholesterol (major risk factor for CHD)>= 60 mg/dL: High HDL-cholesterol (negative risk factor for CHD)HDL-cholesterol is affected by a number of factors, e.g. smoking, exercise, hormones, sex and age. Serum or plasma cholesterol measurement (mass/volume)Ordered By: Aby Lopez on 07-26-2025 Cholesterol [Mass/Vol] 221 mg/dL High <201 [facility] Comment on above: Cholesterol level, D esirable <200 mg/dLBorderline high cholesterol 200-239 mg/dLHigh cholesterol >=240 mg/dLRecommendations of the NCEP Adult Treatment Panel for the following risk-cutoff thresholds for the [place] population. Serum or plasma cortisol collette surement (mass/volume)Ordered By: Aby Lopez on 07-26-2025 Cortisol [Mass/Vol] 19.40 ug/dL High 6.02-18.40 [facility] Serum or plasma ferritin collette surement (mass/volume)Ordered By: Aby Lopez on 07-26-2025 Ferritin [Mass/Vol] 259 ng/mL 37-417 [facility] Serum or plasma free testost erone measurement (mass/volume)Ordered By: Aby Lopez on 07-26-2025 Testosterone Free [Mass/Vol] 9.91 ng/dL 5.00-21.00 [facility] Serum or plasma urea nitroge n measurement (mass/volume)Ordered By: Aby Lopez on 07-26-2025 Urea nitrogen [Mass/Vol] 11 mg/dL 4-19 [facility] Sodium levelOrdered By: Kassidy Lopez on 07-26-2025 Sodium [Moles/Vol] 140 mmol/L 133-145 [facility] T4 Free Directon 07-26-2025 T4 FREE DIRECT 1.30 ng/dL Normal 0.76-1.46 [facility] Comment on above: Order Comment: N Performed By: #### L 501.6710, L503.6550, L500.4050, L501.9520, L500.4100, L509.6001, L506.1001, L506.0400, L3100.5310, L503.0106, L503.6150, L101.9900, L501.9910, L100.0100 ####[facility] [address] [place], [place], [id number] T4 freeOrdered By: Aby rodrigez on 07-26-2025 Free T4 [Mass/Vol] 1.30 ng/dL 0.76-1.46 [facility] TSH DL <= 0.005 mIU/L QnOrde red By: Aby Lopez on 07-26-2025 TSH Qn 1.020 uIU/mL 0.300-4.200 [facility] Testosterone, totalOrdered B y: Aby Lopez on 07-26-2025 Testosterone [Mass/Vol] 390 ng/dL 264-916 [facility] Comment on above: Adult male reference interval is based on a population ofhealthy nonobese males (BMI <30) between 19 and 39 yearsold. griffin Chandler.al. JCEM 2017,102;3516-6763. PMID:19287404. Thyroid Stim Hormone (TSH)on 07-26-2025 TSH 1.020 uIU/mL Normal 0.300-4.200 [facility] Comment on above: Performed By: #### L 501.6710, L503.6550, L500.4050, L501.9520, L500.4100, L509.6001, L506.1001, L506.0400, L3100.5310, L503.0106, L503.6150, L101.9900, L501.9910, L100.0100 #### [facility] [address] [place], [address] Total proteinOrdered By: Babs Lopez on 07-26-2025 Protein [Mass/Vol] 7.3 g/dL 5.9-8.4 [facility] Triglycerides measurementOrd ered By: Aby Lopez on 07-26-2025 Triglyceride [Mass/Vol] 101 mg/dL <199 [facility] Comment on above: The drugs N-Acetylcy steine and Metamizole may falsely depress this assay. Normal range: <150 mg/dLBorderline High: 150-199 mg/dLHigh: 200-499 mg/dLVery High: >500 mg/dL Vitamin B12on 07-26-2025 Cobalamin (Vitamin B12) [Mass/Vol] 545 pg/mL Normal 180-914 [facility] Comment on above: Performed By: #### L 501.6710, L503.6550, L500.4050, L501.9520, L500.4100, L509.6001, L506.1001, L506.0400, L3100.5310, L503.0106, L503.6150, L101.9900, L501.9910, L100.0100 #### [facility] [address] [place], [place], [id number] Vitamin B12 ser/plasOrdered By: Aby Lopez on 07-26-2025 Cobalamin (Vitamin B12) [Mass/Vol] 545 pg/mL 180-914 [facility] Vitamin D,25 Hydroxyon 07-26 Vitamin D 25-OH 35.5 ng/mL Normal 30-100 [facility] Comment on above: Result Comment: Mary min D Status Deficiency: <20 ng/mL (50nmol/L) Insufficiency: 20-30 ng/mL (50-75 nmol/L) Sufficiency: 30-100 ng/mL (75-250 nmol/L) Toxicity: >100 ng/mL (>250 nmol/L) Performed By: #### L 501.6710, L503.6550, L500.4050, L501.9520, L500.4100, L509.6001, L506.1001, L506.0400, L3100.5310, L503.0106, L503.6150, L101.9900, L501.9910, L100.0100 ####[facility] [address] [place], [place], [address] White blood cell (WBC) count Ordered By: Aby Lopez on 07-26-2025 WBC (Bld) [#/Vol] 4.0 10*3/uL Low 4.4-11.0 [facility] Surgery Visit Reporton 10-03 Surgery Visit Report [facility] [address] [place] [address] OFFICE VISIT Date of Service: 10/03/24 MR#: [id number] Acct: [id number] Name: GIOVANA JACOBS Rep #: [id number] : 1980 Provider: Dr. Yuli cummings MD Age/Sex: 44/M Location: [facility] Status: Signed Intake Vital Signs 09/18/24 13:54 [...] agreeable with plan. Yuli Motley M.D. Pager: [phone] [facility] [address] [place] [address], [facility], [address] [place] [id number] Office: [phone] Coding Level of Care Code Off vis,est,level 3 Diagnoses Acid reflux K21.9 Umbilical hernia K42.9 10/06/24 1244 Date Yuli Lópezignkendal Signature: Date (if applicable) CC: JERE Lopez Normal [facility] Surgery Visit Reporton 09-18 Surgery Visit Report [facility] [address] [place] [address] OFFICE VISIT Date of Service: 09/18/24 MR#: [id number] Acct: [id number] Name: GIOVANA JACOBS Rep #: [id number] : 1980 Provider: Dr. Yuli cummings MD Age/Sex: 44/M Location: [facility] Status: Signed Intake Vital Signs 07/05/24 08:00 [...] healthy appearing, comfortable and no acute distress [facility] Head: normocephalic and atraumatic Neck Neck: [...] agreeable with plan. Yuli Motley M.D. Pager: [phone] [facility] [address] [place] [address], [address] [place] [address] Office: [phone] Coding Level of Care Code Off vis,est,level 3 Diagnoses Umbilical hernia K42.9 Epigastric abdominal pain R10.13 09/20/24 0725 Date Yuli Cano (more content not included)... [facility] Visit (UCWSTR) GIOVANA JACOBS ([id number]) 1980 M Date Time Provider Department 03/20/23 9:45 AM [facility] During your visit today, we recorded the following information about you: Temperature Pulse Respiration Blood pressure 98.1 degrees 67/minute 18/minute 122/64 Weight 94.2 kg Mitzi Trinh APRN.LINE PALLETIZER 03/20/2023 10:15 AM Signed Subjective HPI Giovana [...] 875 bid x 7 days Mitzi Trinh APRN.LINE PALLETIZER Allergies As of Date: 03/20/2023 (No Known Allergies) Date Reviewed: 03/20/2023 Reviewed by: Johanna Cavazos LPN - Fully Assessed Reason for Visit: Pain, Throat [856] Cmt: Pt reported throat, ear pain rated 9, x4 days. Primary Visit Diagnosis:Sore throat [J02.9] Other Visit Diagnosis:Acute otitis media, right [H66.91] Order(s):STREP A MOLECULAR (POC) [2723770] Order #: [id number]. #:[id number] amoxicillin (AMOXIL) 875 mg tabletTake 1 tablet [...] Encounter Status:Closed by MITZI TRINH on 03/20/23 [facility] Neelima 03-20-2023 [facility] Telephone (UCWSTR) GIOVANA JACOBS ([id number]) 1980 M Date Time Provider Department 03/20/23 [facility]ZI TRINHWSKAHLIL During your visit today, we recorded the following information about you: Natalia Martinez Dimas Pss 03/20/2023 10:48 AM Signed Please call patient, he is unsure of how many prescriptions he should be picking. Patient uses [facility] in [place].canelo Clement 03/20/2023 11:07 AM Signed Patient given results and verbalized understanding of instructions given. Brittni Clement Allergies As of Date: 03/20/2023 (No Known Allergies) Date Reviewed: 03/20/2023 Reviewed by: Johanna Cavazos LPN - Fully Assessed Reason for Visit: Patient Question [9357] Prescriptions as of 03/20/2023 - amoxicillin (AMOXIL) 875 mg tablet Take 1 tablet by mouth twice daily for 7 days. - HYDROcodone-acetamin ophen 5-325 mg per tablet Take 1 tablet by mouth every 6 hours as needed. Problem List As Of Date 03/20/2023 Noted Resolved Other specified procreative management(V26.89) *08/31/2014 Encounter Status:Closed by BRITTNI CLEMENT on 03/20/[address] [facility] STREP A MOLECULAR (POC)on Procedural Control Valid [facility] Strep A (POCT) Negative Negative [facility] Vital Signs Date Time Vital Sign Value Performing Clinician Mauliki el 03-20-2023 09:49-0400 Body temperature 98.1 [degF] Mitzi Trinh APRN.CNP Work Phone: [facility] 03-20-2023 09:49-0400 Body weight 94.17 kg Mitzi Trinh APRN.CNP Work Phone: [facility] 03-20-2023 09:49-0400 Diastolic blood pressure 64 mm[Hg] Mitzi Trinh APRN.CNP Work Phone: [facility] 03-20-2023 09:49-0400 Heart rate 67 /min Mitzi Trinh APRN.CNP Work Phone: [facility] 03-20-2023 09:49-0400 Respiratory rate 18 /min Mitzi Trinh PLASTERER STUCCO.AGNES Work Phone: [facility] 03-20-2023 09:49-0400 SaO2% (BldA) [Mass fraction] 97 % Mitzi Trinh PLASTERER STUCCO.LINE PALLETIZER Work Phone: [facility] 03-20-2023 09:49-0400 Systolic blood pressure 122 mm[Hg] Mitzi Trinh PLASTERER STUCCO.LINE PALLETIZER Work Phone: [facility] Encounters Encounter Date Encounter Type Care Provider Facility Start: 08-10-2025 Encounter for genera l adult medical examination with abnormal findings [facility] Start: 07-26-2025 End: 07-26-2025 ambulatory [facility] EVP GENERAL COUNSEL-C Work Phone: -Radiology [facility] Start: 07-26-2025 End: 07-26-2025 Patient encounter procedure [facility] EVP GENERAL COUNSEL-C -Radiology [facility] Work Phone: Start: 07-26-2025 End: 07-26-2025 ambulatory [facility] Facility:[facility] Start: 10-03-2024 End: 10-03-2024 ambulatory [facility] Facility:[facility] Start: 09-18-2024 End: 09-18-2024 ambulatory [facility] Facility:[facility] Start: 03-20-2023 Telephone encounter Mitzi muñoz APRN.LINE PALLETIZER Work Phone: [facility] Comment on above: Patient Question Start: 03-20-2023 End: 03-20-2023 ambulatory Facility:[facility] Start: 03-20-2023 End: 03-20-2023 Patient encounter procedure Mitzi Trinh PLASTERER STUCCO.LINE PALLETIZER Work Phone: [facility] Comment on above: Sore throat (Primary Dx); Acute otitis media, right Start: 02-11-2023 End: 02-11-2023 Emergency department patient visit CHANELL YOUNG MD Facility:B Start: 01-15-2014 End: 01-15-2014 Telephone encounter Iris Roberts MD Work Phone: Gynecology Procedures Date Procedure Procedure Detail Performing Clinician Start: 07-26-2025 X-ray of cervical spine Aby Whipplegar EVP GENERAL COUNSEL-C Work Phone: Start: 07-26-2025 Prostate specific an tigen measurement Aby Whipplegar EVP GENERAL COUNSEL-C Work Phone: Comment on above: This test [...] Vitamin D, 25-hydrox y measurement Aby Lopez EVP GENERAL COUNSEL-C Work Phone: Comment on above: Vitamin D StatusDefi ciency: <20 ng/mL (50nmol/L)Insufficiency: 20-30 ng/mL (50-75 nmol/L)Sufficiency: 30-100 ng/mL (75-250 nmol/L)Toxicity: >100 ng/mL (>250 nmol/L) Start: 03-20-2023 STREP A MOLECULAR (POC) Royer Marsh APRN.CNP Work Phone: Plan of Treatment Date Care Activity Detail Author Start: 07-23-2023 Influenza vaccination INFLUENZA (Sea son Ended) [facility] Start: 11-22-2022 DEPRESSION ASSESSMENT DEPRESSION ASS ESSMENT [facility] Start: 07-23-2021 Influenza vaccination INFLUENZA (Sea son Ended) [facility] Start: 2017 LIPID SCREEN LIPID SCREEN [facility] Start: 2001 Urine microalbumin profile DTAP,TDAP ,TD (1 - Tdap) [facility] Start: 2000 HEPATITIS C SCREENING HEPATITIS C SC REENING [facility] Start: 2000 HIV SCREENING HIV SCREENING [facility] Start: 1994 Adult depression scr eening assessment DEPRESSION SCREENING [facility] Start: 02-22-1983 COVID-19 VACCINE (#1) COVID-19 VACCI NE (#1) [facility] Start: 1980 HEPATITIS B (1 of 3 - 3-dose series) HEPATITIS B (1 of 3 - 3-dose series) [facility] Payers Date Payer Category Payer Self-pay 2024 Unknown [id number] 2023 Unknown [id number] 2023 Unknown [id number] 2012 Unknown [facility] CE PLAN [place] [facility] [employer] CHOICE [id number] 2012-Present PPO [id number] 2012 Unknown [id number] 2012 Unknown [id number] 1982 Unknown [id number] Unknown [id number] Unknown [id number] Unknown [id number] Social History Date Type Detail Facility Start: 12-04-2013 End: 07-05-2024 Tobacco smoking status CTIS Current every day smoker [facility] History of tobacco use Cigarette Smoker C [facility] Work Phone: Start: 12-04-2013 End: 03-20-2023 Cigarettes smoked current (pack per day) - Reported [facility] Start: 12-04-2013 End: 03-20-2023 Tobacco use and exposure Current user [facility] Work Phone: History of tobacco use Snuff User [facility] Work Phone: Start: 12-04-2013 End: 03-20-2023 Alcohol intake Not Asked [facility] Start: 1980 Sex Assigned At Not on file C [facility] Start: 03-20-2023 Tobacco smoking stat us CTIS Ex-smoker [facility] History of tobacco use Current smoker [facility] Start: 03-20-2023 Tobacco Comment [facility] Start: 04-10-2021 Tobacco Use Tobacco Use [facility] Sex Male [facility] Start: 1980 Sex Assigned At Male [facility] Medical Equipment Procedure Code Equipment Code Equipment Origin al Text Equipment Identifier Dates Colonoscopy Tissue marking ink [id number] Start: 07-05-2024 Radiology Diagnostic study note 07-26-2025 Note Date & Type Note Facility 07-26-2025 Radiology Diagnostic study note [facility] Services [address] [place] [address] Cerv Spine 4 or 5 Views MR#: [id number] Acct: [id number] Name: GIOVANA JACOBS Rep #: [id number] : 1980 M 44 From: Elpidio Anthony MD PCP: JERE Freire Status: REG CLI Study:Cerv Spine 4 or 5 Views Date of Exam: 07/26/25 Exam# [id number] Ordering Dr: Ra karthik Lopez PROCEDURE: CERV [...] 3. Spondylolisthesis, C4 on C5. Reading Location: [id number] CC: JERE Lopez ~ Senior Ui Developer: Signed [facility] Work Phone: Progress note 03-20-2023 Note Date & Type Note Facility 03-20-2023 Note HNO ID: [id number] Author: Mitzi Trinh APRN.LINE PALLETIZER Service: ? Author Type: Nurse Practitioner Type: [...] 875 bid x 7 days Mitzi Trinh APRN.LINE PALLETIZER [facility] Note 03-20-2023 Telephone Encounter - Brittni Clement [...] should be picking. [facility] uses [facility] [place]. documented in this encounter [facility] History of Present illness Narrative 03-20-2023 Mitzi Trinh APRN.LINE PALLETIZER - 03/20/2023 10:05 AM EDT Note Date [...] Mitzi Trinh APRN.AGNES documented in this encounter [facility] Note 01-15-2014 Telephone Encounter - Hannah Guerrero) [...] Anl 1.40 (H) Slide No. Semen Rout [id number] Endtz 0.0 Forward Progression 2... Sperm Diff, Roz 2 (L) Called pt with the result as above and explained his essentially nl results. is Beverley [id number]. Note to Dr. Roberts in 's chart. . Note in both charts.Any additional? [phone]- Patient calling for SA. Called and left a message that pt/ needs to call for his results (HIPAA) and then he can give us permission to share them with her. [phone]-patient calling for semen analysis results. documented in this encounter [facility] Evaluation note Note Date & Type Note Facility Evaluation note Diagnosis Sore throat- Primary Acute pharyngitis Acute otitis media, right Unspecified otitis media documented in this encounter [facility] Evaluation note Note Date & Type Note Facility Evaluation note No assessment information availa lucy [facility] Work Phone: Reason for referral (narrative) Note Date & Type Note Facility Reason for referral (narrative) No reason for referral information available [facility] Work Phone: Summary Purpose Family History No [...] or prosecute any alcohol or drug abuse patient.[facility] the event this information is protected by the Federal Confidentiality of Alcohol and Drug Abuse Patient Records regulations: The Federal rules restrict any use of the information to criminally investigate or prosecute any alcohol or drug abuse patient.[facility] the event this information is protected by the Federal Confidentiality of Alcohol and Drug Abuse Patient Records regulations: The Federal rules restrict any use of the information to criminally investigate or prosecute any alcohol or drug abuse patient.[facility] (unrecognized sect ion and content) No Status Records FoundNo Status Records FoundNo Status Records Found INFORMATION SOURCE (unrecogn ized section and content) DATE CREATED AUTHOR 02/23/2023 [facility] ([place]) DATE CREATED AUTHOR AUTHOR'S ORGANIZ ATION 03/20/[address] [facility] DATE CREATED AUTHOR AUTHOR'S ORGANIZ ATION 08/12/2025 [facility] Reason for Visit (unrecogniz ed section and [...] 26, 2025 End: July 26, 2025 JERE Friere Attending physician Active S tart: July 26, [...] BE BASED ON THE PRIMARY CLINICAL RECORDS. [facility]. provides no warranty or guarantee of the accuracy or completeness of information in this document.
--- NOTE | 2025-11-14 07:08 | MRI_ITS ---
PROCEDURE: SPINE CERVICAL (ROUTINE) 11/14/2025 REASON FOR EXAM: Clinical history of cervical radiculopathy. TECHNIQUE: Procedure Code: MRISP Modality: MR Procedure: SPINE CERVICAL (ROUTINE) Multiplanar and multisequence images were obtained without IV contrast administration. COMPARISON: None available. FINDINGS: The visualized posterior fossa contents appear within normal limits. The normal cervical lordosis is maintained. The atlantooccipital and atlantoaxial joints appear normally aligned. The cervical vertebral bodies are normal in height. The cervical vertebral bodies are normal in alignment. The cervical bone marrow signal is within normal limits. There is no evidence of cervical spinal cord signal abnormality. C2-C3: No significant spinal canal stenosis or neural foraminal narrowing. C3-C4: No significant spinal canal stenosis or neural foraminal narrowing. C4-C5: Posterior disc osteophyte complex, bilateral facet arthrosis, and uncovertebral spurring. Mild spinal canal stenosis where there is flattening of the ventral cord. [id number] bilateral neural foraminal narrowing. C5-C6: Disc bulge, bilateral facet arthrosis, and uncovertebral spurring. Mild spinal canal stenosis. Mild right and [id number] left neural foraminal narrowing. C6-C7: No significant spinal canal stenosis. Bilateral facet arthrosis and uncovertebral spurring contribute to mild right neural foraminal narrowing. No significant left neural foraminal narrowing. C7-T1: No significant spinal canal stenosis or neural foraminal narrowing. MRI/Spine Cervical (Routine) IMPRESSION: Cervical spondylosis most prominent at C4-C5 without high-grade spinal canal or neural foraminal stenosis. Reading Location: [id number]
== END | disposition home or self-care (01) ==
LOC: OPMRI 07:05
PROVIDERS: PCP Nurse Practitioner Family; Referring Provider Student in an Organized Health Care Education/Training Program; Visit Provider Student in an Organized Health Care Education/Training Program
DX: M54.12 Radiculopathy, cervical region (principal)
CPT/HCPCS: 72141